=== PATIENT | male | born 1940 | race Caucasian/White ===

== ENCOUNTER 2016-06-09 20:31 | Inpatient (IN) | payer MEDICARE ==
[2016-06-09] VITALS (9 sets, daily range): BP systolic 89–171; BP diastolic 62–112; PULSE 86–150; RESP 18–35; TEMP 95.3–98.4; O2SAT 94–100
[~2016-06-09] VITALS: Ht 175.3 cm; Wt 56.1 kg
[~2016-06-09 20:31] MED LIST: ALBU8I INH; APIX2.5T PO; CART180C4 PO; CARV25TA PO; DOCU100T9 PO; FURO40TA OR; KLOR20TA6 PO; LISI2.5T3 PO; MEDR4PAK3 PO; NITR0.4S SL; PACE200T4 PO
[2016-06-09] MEDS ORDERED: methylPREDNISolone SOD SUCC 125 MG/2 ML VIAL IVP ONE (20:45)
[2016-06-09] MEDS ORDERED: SODIUM CHLORIDE 0.9% FLUSH 10 ML FLUSH IVF PRN (20:45)
[2016-06-09] MEDS: RESP: ALBUTEROL 2.5 MG/IPRATROPIUM 0.5 MG NEB (SCH) INH (20:50)
--- NOTE | 2016-06-09 20:53 | PD ---
HPI Chief Complaint: shortness of breath Time Seen by Provider: 20:35 Travel History International Travel<30 days: No Contact w/Intl Traveler<30days: No Traveled to known affect area: No History of Present Illness HPI The patient is a 76-year-old male with a history of COPD and continued tobacco abuse who complains of shortness of breath for the last 2 days but the last 3 hours have been worse. He denies any fever. He continues to smoke three fourths packs a day. He does not get oxygen at home. He has a history of atrial fibrillation with left bundle-branch block. 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 [facility] Past Medical History Hx Anticoagulant Therapy: Yes Asthma: No Atrial Fibrillation: Yes Blood Disorders: No Anxiety: No Depression: No Heart Rhythm Problems: Yes Cancer: Yes (SKIN) Cardiac Catheterization: Yes Cardiovascular Problems: Yes High Cholesterol: Yes Chemotherapy: No Chest Pain: Yes Congestive Heart Failure: Yes COPD: Yes Coronary Artery Disease: Yes Diabetes: No Diminished Hearing: No Endocrine: No Gastrointestinal Disorders: No Genitourinary: No Hepatitis: No Hiatal Hernia: Yes Hypertension: Yes Immune Disorder: No Implanted Vascular Access Dvce: Yes Musculoskeletal: No Neurologic: No Psychiatric: No Reproductive: No Respiratory: Yes Myocardial Infarction: Yes (X 3) Radiation Therapy: No Sleep Apnea: No PNEUMOCCOCAL Vaccine (Year): 1 Past Surgical History Abdominal Surgery: No AICD: Yes Arteriovenous Shunt: No Cardiac Surgery: Yes (CABG/ PACER/DEFIB) Coronary Artery Bypass Graft: Yes Coronary Stent: Yes Ear Surgery: No Endocrine Surgery: No Eye Surgery: No Genitourinary Surgery: No Gynecologic Surgery: No Insulin Pump: No Joint Replacement: No Neurologic Surgery: No Oral Surgery: No Pacemaker: Yes (LUMAX 340 JADA [id number] 06/02/[address] ESCOBAR) Thoracic Surgery: Yes (CABG) Other Surgery: Yes (AICD) Social History Alcohol Use: Yes (rare) Tobacco Use: Yes (1/2 PPD) Substance Use: No Allergies-Medications (Allergen,Severity, Reaction): Coded Allergies: HMG-CoA Reductase Inhibitors (Verified Adverse Reaction, Unknown, rapid breathing , 06/09/16) Reported Meds & Prescriptions Reported Meds & Active Scripts Active Reported Ventolin Hfa 18 GM Inh (Albuterol Sulfate) 90 Mcg/Act Aer 2 Puff INH Q4-6H PRN Docusate Sodium 100 Mg Cap 50 Mg PO BID Vitamin D3 (Cholecalciferol) 2,000 Unit Chew 2,000 Units CHEW DAILY Carvedilol 25 Mg Tab 25 Mg PO BID Klor-Con M20 (Potassium Chloride Microencaps) 20 Meq Tab 20 Meq PO Q12HR Cartia Xt (Diltiazem ER 24 HR) 180 Mg Caper 180 Mg PO DAILY Nitroglycerin SL (Nitroglycerin) 0.4 Mg Subl 0.4 Mg SL DIRECTED PRN ONE TABLET UNDER THE TONGUE NEEDED FOR CHEST PAIN, MAY REPEAT EVERY FIVE MINUTES FOR A TOTAL OF 3 DOSES OR CALL 911 IF NO RELIEF Eliquis (Apixaban) 5 Mg Tab 5 Mg PO BID Amiodarone (Amiodarone HCl) 200 Mg Tab 200 Mg PO DAILY Digoxin 0.125 Mg Tab 0.125 Mg PO DAILY Furosemide 40 Mg Tab 40 Mg PO BID Review of Systems Except as stated in HPI: all other systems reviewed are Neg Physical Exam Narrative GENERAL: The patient is alert, oriented 3 and moderate respiratory distress. His vital signs blood pressure 171/112 and pulse rate of 118. SKIN: Focused skin assessment warm/dry. HEAD: Atraumatic. Normocephalic. EYES: Pupils equal and round. No scleral icterus. No injection or drainage. ENT: No nasal bleeding or discharge. Mucous membranes pink and moist. NECK: Trachea midline. No JVD. CARDIOVASCULAR: Atrial fibrillation with RVR. No murmur appreciated. RESPIRATORY: No accessory muscle use. A few widely scattered rhonchi are heard bilaterally.. Breath sounds equal bilaterally. GASTROINTESTINAL: Abdomen soft, non-tender, nondistended. Hepatic and splenic margins not palpable. MUSCULOSKELETAL: No obvious deformities. No clubbing. No cyanosis. No edema. NEUROLOGICAL: Awake and alert. No obvious cranial nerve deficits. Motor grossly within normal limits. Normal speech. PSYCHIATRIC: Appropriate mood and affect; insight and judgment normal. Data Data Last Documented VS Vital Signs Date Time Temp Pulse Resp B/P Pulse Ox O2 Delivery O2 Flow Rate FiO2 06/09/16 21:40 104 28 98/62 97 Nasal Cannula 1 06/09/16 20:45 98.4 Orders Complete Blood Count With Diff (06/09/16 20:40) Comprehensive Metabolic Panel (06/09/16 20:40) B-Type Natriuretic Peptide (06/09/16 20:40) Magnesium (Mg) (06/09/16 20:40) Troponin I (06/09/16 20:40) Arterial Blood Gas (Abg) (06/09/16 20:40) Urinalysis - C+S If Indicated (06/09/16 20:40) Influenzae A/B Antigen (06/09/16 20:40) Iv Access Insert/Monitor (06/09/16 20:40) Electrocardiogram (06/09/16 20:40) Ecg Monitoring (06/09/16 20:40) Oximetry (06/09/16 20:40) Oxygen Administration (06/09/16 20:40) Sodium Chloride 0.9% Flush (Ns Flush) (06/09/16 20:45) Methylprednisolone So Succ Inj (Solumedr (06/09/16 20:45) Albuterol-Ipratropium Neb (Duoneb Neb) (06/09/16 20:45) Chest, Pa & Lat (06/09/16 21:34) Admit Order (Ed Use Only) (06/09/16 21:52) Labs Laboratory Tests Test 06/09/16 06/09/16 20:48 21:00 White Blood Count 11.9 TH/MM3 Red Blood Count 5.14 MIL/MM3 Hemoglobin 16.2 GM/DL Hematocrit 50.9 % Mean Corpuscular Volume 99.1 FL Mean Corpuscular Hemoglobin 31.5 PG Mean Corpuscular Hemoglobin 31.8 % Concent Red Cell Distribution Width 15.3 % Platelet Count 148 TH/MM3 Mean Platelet Volume 8.5 FL Neutrophils (%) (Auto) 62.1 % Lymphocytes (%) (Auto) 25.0 % Monocytes (%) (Auto) 7.6 % Eosinophils (%) (Auto) 4.0 % Basophils (%) (Auto) 1.3 % Neutrophils # (Auto) 7.3 TH/MM3 Lymphocytes # (Auto) 3.0 TH/MM3 Monocytes # (Auto) 0.9 TH/MM3 Eosinophils # (Auto) 0.5 TH/MM3 Basophils # (Auto) 0.2 TH/MM3 CBC Comment DIFF FINAL Differential Comment Sodium Level 142 MEQ/L Potassium Level 4.8 MEQ/L Chloride Level 109 MEQ/L Carbon Dioxide Level 24.8 MEQ/L Anion Gap 8 MEQ/L Blood Urea Nitrogen 14 MG/DL Creatinine 1.30 MG/DL Estimat Glomerular Filtration 54 ML/MIN Rate Random Glucose 151 MG/DL Calcium Level 8.8 MG/DL Magnesium Level 2.5 MG/DL Total Bilirubin 0.8 MG/DL Aspartate Amino Transf 26 U/L (AST/SGOT) Alanine Aminotransferase 27 U/L (ALT/SGPT) Alkaline Phosphatase 112 U/L Troponin I LESS THAN 0.02 NG/ML B-Type Natriuretic Peptide 585 PG/ML Total Protein 7.6 GM/DL Albumin 3.8 GM/DL Blood Gas Puncture Site LT RADIAL Blood Gas Patient Temperature 98.6 Blood Gas HCO3 22 mmol/L Blood Gas Base Excess -3.1 mmol/L Blood Gas Oxygen Saturation 90 % Arterial Blood pH 7.31 Arterial Blood Partial 45 mmHG Pressure CO2 Arterial Blood Partial 79 mmHG Pressure O2 Arterial Blood Oxygen Content 20.1 Vol % Arterial Blood 3.1 % Carboxyhemoglobin Arterial Blood Methemoglobin 0.9 % Blood Gas Hemoglobin 15.8 G/DL Blood Gas Inspired Oxygen 21 % MDM Medical Decision Making Medical Screen Exam Complete: Yes Emergency Medical Condition: Yes Medical Record Reviewed: Yes Interpretation(s) The chest x-ray shows underlying emphysema and scarring with no evidence of pneumonia or pulmonary edema. The troponin I is normal. The glucose is 151 and the GFR is 54 but the rest of the complete metabolic profile is normal. The BNP is 585. The influenza A/B antigen is negative for flu a and flu B antigen. The blood gases show pH 7.31, CO2 45, PO2 79 with O2 sat 90% on room air. The CBC shows a white count of 11,900 with 148,000 platelets but is otherwise unremarkable. The EKG shows atrial fibrillation with rapid ventricular response of 143. It also shows a left bundle-branch block. Atrial fibrillation and left bundle branch block were previously seen on his EKG in the past. Differential Diagnosis COPD with acute exacerbation, pneumonia, congestive heart failure, acute coronary syndromeunlikely, electrolyte disorder, continued tobacco abuse, atrial fibrillation with RVR Narrative Course The patient continues to have symptomatic shortness of breath. I discussed this patient with Dr. Collier and Dr. Collier instructed me to admit him. The patient states he normally can walk back and forth to his mailbox without getting short of breath but in the last week he is getting short of breath going even nursing home. He denies any fever and there is no evidence of pneumonia on his chest x-ray. He does not use his nebulizer machine, he is noncompliant on this. He used his albuterol HFA twice before coming into the emergency room today. Diagnosis Primary Impression: COPD with acute exacerbation Additional Impression: Noncompliance with medications Admitting Information Admitting Physician Requests: Admit Drew Langley MD Jun 09, 2016 20:53
[2016-06-09 20:57] LABS: AUTOMATED NEUTROPHIL # 7.3 TH/MM3 (1.8-7.7); BASOPHIL # 0.2 TH/MM3 (0-0.2); BASOPHIL % 1.3 % (0.0-2.0); EOSINOPHIL # 0.5 TH/MM3 (0-0.4); HEMATOCRIT 50.9 % (39.0-51.0); MEAN CELL VOLUME 99.1 FL (80.0-100.0); MEAN CORPUSCULAR HEMOGLOBIN 31.5 PG (27.0-34.0); MEAN CORPUSCULAR HGB CONC 31.8 % (32.0-36.0); MONO % 7.6 % (0.0-8.0); NEUT % 62.1 % (16.0-70.0); PLATELET COUNT 148 TH/MM3 (150-450); RED BLOOD COUNT 5.14 MIL/MM3 (4.50-5.90); RED CELL DISTRIBUTION WIDTH 15.3 % (11.6-17.2); WHITE BLOOD COUNT 11.9 TH/MM3 (4.0-11.0)
[2016-06-09 21:05] LABS: BLOOD GAS BASE EXCESS -3.1 mmol/L (-2-2); BLOOD GAS CARBOXYHEMOGLOBIN 3.1 % (0-4); BLOOD GAS HCO3 22 mmol/L (22-26); BLOOD GAS METHEMOGLOBIN 0.9 % (0-2); BLOOD GAS O2 HGB SATURATION 90 % (90-100); BLOOD GAS OXYGEN CONTENT 20.1 Vol % (12.0-20.0); BLOOD GAS PCO2 45 mmHG (38-42); BLOOD GAS PO2 79 mmHG (61-120); BLOOD GAS TOTAL HGB 15.8 G/DL (12.0-16.0); TEMP CORR TO 98.6
[2016-06-09 21:05] LABS: CHLORIDE 109 MEQ/L (98-107); POTASSIUM 4.8 MEQ/L (3.5-5.1); SODIUM (NA) 142 MEQ/L (136-145)
[2016-06-09 21:06] LABS: CRITICAL VALUE YES; DRAW SITE LT RADIAL; FIO2 21 %; NUMBER OF ARTERIAL PUNCTURES 1; STAT YES; ULNAR PULSE Y
[2016-06-09 21:09] LABS: ANION GAP 8 MEQ/L (5-15); BICARBONATE 24.8 MEQ/L (21.0-32.0); BLOOD UREA NITROGEN 14 MG/DL (7-18); MAGNESIUM 2.5 MG/DL (1.5-2.5)
[2016-06-09 21:12] LABS: ALT (GPT) 27 U/L (12-78); AST (GOT) 26 U/L (15-37); GLOMERULAR FILTRATION RATE 54 ML/MIN (>89); HEMO FLAGS DIFF FINAL
[2016-06-09 21:14] LABS: TOTAL BILIRUBIN ADULT 0.8 MG/DL (0.2-1.0)
[2016-06-09 21:15] LABS: ALKALINE PHOSPHATASE 112 U/L (45-117)
[2016-06-09] MEDS ORDERED: FURO40TA PO (21:24)
[2016-06-09] MEDS ORDERED: AMIO200T PO (21:25)
[2016-06-09] MEDS ORDERED: DIGO0.12 PO (21:25)
[2016-06-09] MEDS ORDERED: APIX5TAB PO (21:26)
[2016-06-09] MEDS ORDERED: NITR1SUB3 SL (21:27)
[2016-06-09] MEDS ORDERED: CART180C PO (21:27)
[2016-06-09] MEDS ORDERED: POTA-245 PO (21:28)
[2016-06-09] MEDS ORDERED: CARV25TA PO (21:28)
[2016-06-09] MEDS ORDERED: DOCU100C PO (21:30)
[2016-06-09] MEDS ORDERED: CHOL1CHW5 CHEW (21:30)
[2016-06-09] MEDS ORDERED: ALBUAER3 INH (21:31)
[2016-06-09] MEDS ORDERED: VENTAER INH (21:32)
--- NOTE | 2016-06-09 22:22 | RADHPO ---
EXAM DATE/TIME: 06/09/2016 21:50 [place] COMPARISON: No previous studies available for comparison. INDICATIONS : Short of breath and difficulty breathing. MEDICAL HISTORY : Myocardial infarction. Chronic obstructive pulmonary disease. Emphysema CHF. Afib. SURGICAL HISTORY : CABG. Pacemaker. ENCOUNTER: Initial ACUITY: 2 days PAIN SCORE: 2/10 LOCATION: Bilateral chest FINDINGS: 2 AP views of the chest were obtained as well as a lateral view and demonstrate hyperinflation of bot h lungs with mild scarring. There are no confluent infiltrates or effusions. The hemidiaphragms are f lattened with blunting of costophrenic angles. The heart size is at the upper limits of normal. The p atient is status post median sternotomy for bypass grafting procedure. There is a left subclavian AV sequential transvenous pacer in place. CONCLUSION: 1. Underlying emphysema and scarring. 2. No evidence of pneumonia or pulmonary edema. Marcus Bustillo MD on June 09, 2016 at 22:19 Board Certified Radiologist. This report was verified electronically.
[2016-06-10] VITALS (8 sets, daily range): BP systolic 95–102; BP diastolic 63–68; PULSE 63–86; RESP 18–20; TEMP 95.5–97.4; O2SAT 97–98
[2016-06-10] MEDS ORDERED: ALBUTEROL SULFATE 90 MCG/ACT HFA 8 GM INHALER INH PRN (02:00)
[2016-06-10] MEDS ORDERED: SODIUM CHLORIDE 0.9% FLUSH 10 ML FLUSH IV FLUSH PRN (02:00)
[2016-06-10] MEDS ORDERED: NITROGLYCERIN 0.4 MG SL 25 TABS/BTL SL PRN (02:00)
[2016-06-10] MEDS ORDERED: RESP: ALBUTEROL 2.5 MG/3 ML NEB (PRN) INH (02:00)
[2016-06-10] MEDS: methylPREDNISolone SOD SUCC 125 MG/2 ML VIAL IVP SCH ×4 (03:44→23:11)
[2016-06-10] MEDS: cefTRIAXone INJ 1,000 MG in SODIUM CHLORIDE 0.9% INJ 100 ML IV SCH (03:46)
[2016-06-10] MEDS: AZITHROMYCIN INJ 500 MG in SODIUM CHLOR 0.9% 250 ML INJ 250 ML IV SCH (04:51)
[2016-06-10] MEDS: DILTIAZEM-CD 180 MG CAP ER PO SCH (09:00)
[2016-06-10] MEDS ORDERED: CARVEDILOL 12.5 MG TAB PO SCH (09:00)
[2016-06-10] MEDS: DIGOXIN 0.125 MG TAB PO SCH (09:00)
--- NOTE | 2016-06-10 10:33 | EKG ---
Date Performed: 06/09/2016 Time Performed: 20:31:30 PTAGE: 76 years EKG: Atrial fibrillation with rapid ventricular response. Left bundle branch block Abnormal ECG PREVIOUS TRACING : 10/08/2015 03.31 DOCTOR: Magnus Malhotra Interpretating Date/Time 06/10/2016 10:32:49
[2016-06-10] MEDS: AMIODARONE 200 MG TAB PO SCH (10:37)
[2016-06-10] MEDS: APIXABAN 5 MG TABLET PO SCH ×2 (10:37→23:10)
[2016-06-10] MEDS: CHOLECALCIFEROL (VIT D3) 1000 UNIT TAB PO SCH (10:37)
[2016-06-10] MEDS: DOCUSATE SODIUM 100 MG/10 ML UDC PO SCH ×2 (10:37→23:10)
[2016-06-10] MEDS: FUROSEMIDE 40 MG TAB PO SCH ×2 (10:37→18:30)
[2016-06-10] MEDS: POTASSIUM CHLORIDE 20 MEQ CONTROLLED RELEASE TAB PO SCH ×2 (10:37→23:10)
[2016-06-10] MEDS: NICOTINE 21 MG/24 HR PATCH TD SCH (10:37)
[2016-06-10] MEDS: SODIUM CHLORIDE 0.9% FLUSH 10 ML FLUSH IV FLUSH SCH ×2 (10:37→21:00)
[2016-06-10 12:04] LABS: BLOOD, URINE NEG (NEG); GLUCOSE,URINE 500 mg/dL (NEG); KETONE, URINE TRACE mg/dL (NEG); NITRITE,URINE NEG (NEG)
[2016-06-10 12:09] LABS: METHOD OF COLLECTION CLEAN CATCH; URINE COLOR YELLOW (YELLW/STRAW)
[2016-06-10 12:10] LABS: COMMENT (UR) CULT NOT INDICATED; CULTURE IF INDICATED CULT NOT INDICATED; RBC, URINE 0-3 /hpf (0-3); SQUAMOUS EPITHELIAL CELL URINE 0-5 /hpf (0-5); WBC, URINE 0-2 /hpf (0-5)
--- NOTE | 2016-06-10 18:44 | HHI.HP ---
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 and prior afib with cad and cabg x3v his heart rate was controlled in ed but he remained sob with chest pressure and was admitted Review of Systems Respiratory: COMPLAINS OF: Cough, Wheezing, Shortness of breath Cardiovascular: COMPLAINS OF: Chest pain Past Family Social History Allergies: Coded Allergies: HMG-CoA Reductase Inhibitors (Verified Adverse Reaction, Unknown, rapid breathing , 06/09/16) Past Medical History copd cad pacemaker Past Surgical History [id number] pacemaker Active Ordered Medications Current Medications Medications (Trade) Dose Ordered Sig/[place] Route PRN Reason Start Time Stop Time Status Last Admin Dose Admin Sodium Chloride (NS Flush) 2 ml BID IV FLUSH 06/10/16 09:00 06/10/16 10:37 Sodium Chloride (NS Flush) 2 ml UNSCH PRN IV FLUSH FLUSH AFTER USING IV ACCESS 06/10/16 02:00 Methylprednisolone Sodium Succinate 60 mg 60 mg Q6H IVP 06/10/16 03:00 06/10/16 15:54 Ceftriaxone Sodium/Sodium Chloride (Rocephin Inj/NS Inj) 100 ml @ 200 mls/hr Q24H IV 06/10/16 02:00 06/10/16 03:46 Nicotine 1 patch 1 patch DAILY TD 06/10/16 09:00 06/10/16 10:37 Azithromycin/ Sodium Chloride (Zithromax Inj/ NS 250 ml Inj) 250 ml @ 250 mls/hr Q24H IV 06/10/16 02:00 06/10/16 04:51 Albuterol Sulfate (Proair Hfa Inh) 2 puff QID PRN INH SHORTNESS OF BREATH 06/10/16 02:00 Amiodarone HCl (Cordarone) 200 mg DAILY PO 06/10/16 09:00 06/10/16 10:37 Apixaban (Eliquis) 5 mg BID PO 06/10/16 09:00 06/10/16 10:37 Digoxin (Lanoxin) 0.125 mg DAILY PO 06/10/16 09:00 Diltiazem HCl (Cardizem Cd) 180 mg DAILY PO 06/10/16 09:00 Docusate Sodium (Colace Liq) 50 mg BID PO 06/10/16 09:00 06/10/16 10:37 Furosemide (Lasix) 40 mg BID@,18 PO 06/10/16 09:00 06/10/16 18:30 Nitroglycerin (Nitrostat Sl) 0.4 mg TID PRN SL CHEST PAIN 06/10/16 02:00 Potassium Chloride (KCl) 20 meq Q12HR PO 06/10/16 09:00 06/10/16 10:37 Cholecalciferol (Vitamin D3) 2,000 units DAILY PO 06/10/16 09:00 06/10/16 10:37 Carvedilol (Coreg) 12.5 mg BID PO 06/10/16 21:00 Family History both parents are with heart disease Social History smoker x 60 years occasional drinker Physical Exam Vital Signs Vital Signs Date Time Temp Pulse Resp B/P Pulse Ox O2 Delivery O2 Flow Rate FiO2 06/10/16 16:00 97.4 71 18 95/63 98 06/10/16 12:00 96.0 63 20 102/68 98 06/10/16 08:00 95.5 70 20 95/64 97 06/10/16 07:25 97 21 06/10/16 04:00 96.8 83 20 96/67 97 06/10/16 00:41 84 06/09/16 23:05 95.3 93 18 104/75 95 06/09/16 22:55 86 24 89/62 97 Room Air 06/09/16 22:36 98 Room Air 06/09/16 22:10 91 24 93/67 99 Nasal Cannula 1 06/09/16 21:40 104 28 98/62 97 Nasal Cannula 1 06/09/16 21:30 90 Nasal Cannula 1 06/09/16 21:25 116 30 108/74 94 Room Air 06/09/16 21:10 124 30 126/93 94 Room Air 06/09/16 21:00 97 Room Air 06/09/16 20:50 132 30 153/84 100 Nasal Cannula 3 06/09/16 20:45 30 Nasal Cannula 3 06/09/16 20:45 98.4 132 30 154/110 100 Nasal Cannula 3 06/09/16 20:40 94 Nasal Cannula 3 06/09/16 20:35 94 Room Air 06/09/16 20:35 98.0 150 35 171/112 94 Physical Exam GENERAL: This is a well-nourished, well-developed patient, in no apparent distress. SKIN: No rashes, ecchymoses or lesions. Cool and dry. HEAD: Atraumatic. Normocephalic. No temporal or scalp tenderness. EYES: Pupils equal round and reactive. Extraocular motions intact. No scleral icterus. No injection or drainage. ENT: Nose without bleeding, purulent drainage or septal hematoma. Throat without erythema, tonsillar hypertrophy or exudate. Uvula midline. Airway patent. NECK: Trachea midline. No JVD or lymphadenopathy. Supple, nontender, no meningeal signs. CARDIOVASCULAR: Regular rate and rhythm without murmurs, gallops, or rubs.well healed cabg incision present with pacemaker present in LICS RESPIRATORY: diminished throughout with some wheeze and rhonchi present GASTROINTESTINAL: Abdomen soft, non-tender, nondistended. No hepato-splenomegaly , or palpable masses. No guarding. MUSCULOSKELETAL: Extremities without clubbing, cyanosis, or edema. No joint tenderness, effusion, or edema noted. No calf tenderness. Negative Homans sign bilaterally.frail NEUROLOGICAL: Awake and alert. Cranial nerves II through XII intact. Motor and sensory grossly within normal limits. Five out of 5 muscle strength in all muscle groups. Normal speech. Laboratory Laboratory Tests Test 06/09/16 06/09/16 06/10/16 06/10/16 20:48 21:00 06:00 11:50 White Blood Count 11.9 Red Blood Count 5.14 Hemoglobin 16.2 Hematocrit 50.9 Mean Corpuscular Volume 99.1 Mean Corpuscular Hemoglobin 31.5 Mean Corpuscular Hemoglobin 31.8 Concent Red Cell Distribution Width 15.3 Platelet Count 148 Mean Platelet Volume 8.5 Neutrophils (%) (Auto) 62.1 Lymphocytes (%) (Auto) 25.0 Monocytes (%) (Auto) 7.6 Eosinophils (%) (Auto) 4.0 Basophils (%) (Auto) 1.3 Neutrophils # (Auto) 7.3 Lymphocytes # (Auto) 3.0 Monocytes # (Auto) 0.9 Eosinophils # (Auto) 0.5 Basophils # (Auto) 0.2 CBC Comment DIFF FINAL Differential Comment Sodium Level 142 Potassium Level 4.8 Chloride Level 109 Carbon Dioxide Level 24.8 Anion Gap 8 Blood Urea Nitrogen 14 Creatinine 1.30 Estimat Glomerular Filtration 54 Rate Random Glucose 151 Calcium Level 8.8 Magnesium Level 2.5 Total Bilirubin 0.8 Aspartate Amino Transf 26 (AST/SGOT) Alanine Aminotransferase 27 (ALT/SGPT) Alkaline Phosphatase 112 Troponin I LESS THAN 0.02 B-Type Natriuretic Peptide 585 808 Total Protein 7.6 Albumin 3.8 Blood Gas Puncture Site LT RADIAL Blood Gas Patient Temperature 98.6 Blood Gas HCO3 22 Blood Gas Base Excess -3.1 Blood Gas Oxygen Saturation 90 Arterial Blood pH 7.31 Arterial Blood Partial 45 Pressure CO2 Arterial Blood Partial 79 Pressure O2 Arterial Blood Oxygen Content 20.1 Arterial Blood 3.1 Carboxyhemoglobin Arterial Blood Methemoglobin 0.9 Blood Gas Hemoglobin 15.8 Blood Gas Inspired Oxygen 21 Urine Collection Type CLEAN CATCH Urine Color YELLOW Urine Turbidity CLEAR Urine pH 6.0 Urine Specific [place] 1.028 Urine Protein 30 Urine Glucose (UA) 500 Urine Ketones TRACE Urine Occult Blood NEG Urine Nitrite NEG Urine Bilirubin NEG Urine Leukocyte Esterase NEG Urine RBC 0-3 Urine WBC 0-2 Urine Squamous Epithelial 0-5 Cells Microscopic Urinalysis Comment CULT NOT INDICATED Urine Collection Time 11:50 Date/Time Procedure Status Source Growth 06/09/16 20:48 Influenza Types A,B Antigen (KATHY) - Final Complete Nasal Aspirate NEGATIVE FOR FLU A AND B ANTIGEN.... Result Diagram: 06/09/16204706/09/162047 Imaging Last 24 hours Impressions Chest X-Ray 06/09/162133 Signed Impressions: Service Date/Time: Thursday, June 09, 2016 21:50 - CONCLUSION: 1. Underlying emphysema and scarring. 2. No evidence of pneumonia or pulmonary edema. Marcus Bustillo MD Course pt feeling better today will continue abx and steroids smoking cessation encouraged Assessment and Plan Problem List: (1) COPD (chronic obstructive pulmonary disease) Status: Acute (2) Atrial fibrillation with RVR Status: Acute Discussed Condition With patient and family Discharge Planning codorus Nitish Collier DO Jun 10, 2016 18:44
[2016-06-10] MEDS: CARVEDILOL 12.5 MG TAB PO SCH (23:12)
[2016-06-11] VITALS (10 sets, daily range): BP systolic 90–117; BP diastolic 60–72; PULSE 59–90; RESP 18–20; TEMP 95.7–96.5; O2SAT 96–99
[2016-06-11] MEDS: cefTRIAXone INJ 1,000 MG in SODIUM CHLORIDE 0.9% INJ 100 ML IV SCH (02:10)
[2016-06-11] MEDS: AZITHROMYCIN INJ 500 MG in SODIUM CHLOR 0.9% 250 ML INJ 250 ML IV SCH (02:31)
[2016-06-11] MEDS: methylPREDNISolone SOD SUCC 125 MG/2 ML VIAL IVP SCH ×2 (02:46→09:00)
--- NOTE | 2016-06-11 06:21 | HHI.PR ---
Subjective Remarks Patient alert and oriented. Denies any SOB or CP Objective Vital Signs Date Time Temp Pulse Resp B/P Pulse Ox O2 Delivery O2 Flow Rate FiO2 06/11/16 04:00 95.7 78 18 99/63 97 06/11/16 00:00 96.1 90 18 101/60 98 06/10/16 20:23 97 21 06/10/16 20:00 96.3 86 18 100/67 98 06/10/16 16:00 97.4 71 18 95/63 98 06/10/16 12:00 96.0 63 20 102/68 98 06/10/16 08:00 95.5 70 20 95/64 97 06/10/16 07:25 97 21 I/O 06/10/16 06/10/16 06/10/16 06/11/16 06/11/16 06/11/16 07:00 15:00 23:00 07:00 15:00 23:00 Intake Total 770 ml 800 ml 240 ml 120 ml Output Total 750 ml 200 ml 500 ml Balance 770 ml 50 ml 40 ml -380 ml Intake Oral 420 ml 800 ml 240 ml 120 ml IV Total 350 ml Output Urine Total 750 ml 200 ml 500 ml # Voids 1 # Bowel Movements 0 0 0 0 Result Diagram: 06/09/16204706/09/162047 Medications and IVs Current Medications Medications (Trade) Dose Ordered Sig/[place] Route Start Time Stop Time Status Last Admin (NS Flush) 2 ml BID IV FLUSH 06/10/16 09:00 06/10/16 21:00 (NS Flush) 2 ml UNSCH PRN IV FLUSH 06/10/16 02:00 Methylprednisolone Sodium Succinate 60 mg 60 mg Q6H IVP 06/10/16 03:00 06/11/16 02:46 (Rocephin Inj/NS Inj) 100 ml @ 200 mls/hr Q24H IV 06/10/16 02:00 06/11/16 02:10 Nicotine 1 patch 1 patch DAILY TD 06/10/16 09:00 06/10/16 10:37 (Zithromax Inj/ NS 250 ml Inj) 250 ml @ 250 mls/hr Q24H IV 06/10/16 02:00 06/11/16 02:31 (Proair Hfa Inh) 2 puff QID PRN INH 06/10/16 02:00 (Cordarone) 200 mg DAILY PO 06/10/16 09:00 06/10/16 10:37 (Eliquis) 5 mg BID PO 06/10/16 09:00 06/10/16 23:10 (Lanoxin) 0.125 mg DAILY PO 06/10/16 09:00 (Cardizem Cd) 180 mg DAILY PO 06/10/16 09:00 (Colace Liq) 50 mg BID PO 06/10/16 09:00 06/10/16 23:10 (Lasix) 40 mg BID@,18 PO 06/10/16 09:00 06/10/16 18:30 (Nitrostat Sl) 0.4 mg TID PRN SL 06/10/16 02:00 (KCl) 20 meq Q12HR PO 06/10/16 09:00 06/10/16 23:10 (Vitamin D3) 2,000 units DAILY PO 06/10/16 09:00 06/10/16 10:37 (Coreg) 12.5 mg BID PO 06/10/16 21:00 06/10/16 23:12 Mary Jo Mcadams Jun 11, 2016 06:21
[2016-06-11 06:39] LABS: AUTOMATED NEUTROPHIL # 14.2 TH/MM3 (1.8-7.7); EOSINOPHIL # 0.1 TH/MM3 (0-0.4); EOSINOPHIL % 0.9 % (0.0-4.0); HEMATOCRIT 40.6 % (39.0-51.0); HEMO FLAGS AUTO DIFF; LYMPH % 3.2 % (9.0-44.0); LYMPHOCYTE # 0.5 TH/MM3 (1.0-4.8); MEAN CORPUSCULAR HEMOGLOBIN 32.5 PG (27.0-34.0); MEAN CORPUSCULAR HGB CONC 33.1 % (32.0-36.0); MONO % 2.2 % (0.0-8.0); NEUT % 93.7 % (16.0-70.0); PLATELET COUNT 119 TH/MM3 (150-450); RED BLOOD COUNT 4.14 MIL/MM3 (4.50-5.90); RED CELL DISTRIBUTION WIDTH 14.6 % (11.6-17.2); WHITE BLOOD COUNT 15.1 TH/MM3 (4.0-11.0)
[2016-06-11 06:40] LABS: BICARBONATE 26.4 MEQ/L (21.0-32.0); MAGNESIUM 2.2 MG/DL (1.5-2.5); POTASSIUM 3.8 MEQ/L (3.5-5.1)
[2016-06-11 07:10] LABS: BANDS 13 % (0-6); NEUTROPHIL # MANUAL DIFF 13.9 TH/MM3 (1.8-7.7); POLYS (SEG NEUTROPHILS) 79 % (16-70); WBC DIFF SAMPLE 100
[2016-06-11 07:11] LABS: PLATELET ESTIMATE SMEAR LOW (NORMAL); PLATELET MORPHOLOGY NORMAL (NORMAL); SCAN/DIFF FINAL DIFF MANUAL
[2016-06-11 07:16] LABS: DIGOXIN 0.9 NG/ML (0.8-2.0)
[2016-06-11] MEDS: SODIUM CHLORIDE 0.9% FLUSH 10 ML FLUSH IV FLUSH SCH ×2 (08:59→21:00)
[2016-06-11] MEDS: APIXABAN 5 MG TABLET PO SCH ×2 (09:00→22:53)
[2016-06-11] MEDS: AMIODARONE 200 MG TAB PO SCH (09:00)
[2016-06-11] MEDS: DOCUSATE SODIUM 100 MG/10 ML UDC PO SCH ×2 (09:00→22:54)
[2016-06-11] MEDS: DILTIAZEM-CD 180 MG CAP ER PO SCH (09:00)
[2016-06-11] MEDS: CARVEDILOL 12.5 MG TAB PO SCH ×2 (09:01→21:00)
[2016-06-11] MEDS: FUROSEMIDE 40 MG TAB PO SCH ×2 (09:01→17:24)
[2016-06-11] MEDS: NICOTINE 21 MG/24 HR PATCH TD SCH (09:04)
[2016-06-11] MEDS: DIGOXIN 0.125 MG TAB PO SCH (09:04)
[2016-06-11] MEDS: CHOLECALCIFEROL (VIT D3) 1000 UNIT TAB PO SCH (09:04)
[2016-06-11] MEDS: POTASSIUM CHLORIDE 20 MEQ CONTROLLED RELEASE TAB PO SCH ×2 (09:05→22:53)
--- NOTE | 2016-06-11 11:16 | HHI.PR ---
Subjective Remarks Patient alert and oriented. Denies any SOB or CP Objective Vital Signs Date Time Temp Pulse Resp B/P Pulse Ox O2 Delivery O2 Flow Rate FiO2 06/11/16 08:00 96.2 75 18 106/71 98 06/11/16 04:00 95.7 78 18 99/63 97 06/11/16 00:00 96.1 90 18 101/60 98 06/10/16 20:23 97 21 06/10/16 20:00 96.3 86 18 100/67 98 06/10/16 16:00 97.4 71 18 95/63 98 06/10/16 12:00 96.0 63 20 102/68 98 I/O 06/10/16 06/10/16 06/10/16 06/11/16 06/11/16 06/11/16 07:00 15:00 23:00 07:00 15:00 23:00 Intake Total 770 ml 800 ml 240 ml 120 ml Output Total 750 ml 200 ml 500 ml Balance 770 ml 50 ml 40 ml -380 ml Intake Oral 420 ml 800 ml 240 ml 120 ml IV Total 350 ml Output Urine Total 750 ml 200 ml 500 ml # Voids 1 # Bowel Movements 0 0 0 0 Result Diagram: 06/11/16 0510 06/11/1610 Imaging Last 72 hours Impressions Chest X-Ray 06/09/162133 Signed Impressions: Service Date/Time: Thursday, June 09, 2016 21:50 - CONCLUSION: 1. Underlying emphysema and scarring. 2. No evidence of pneumonia or pulmonary edema. Marcus Bustillo MD Objective Remarks GENERAL: Alert and cooperative SKIN: Warm and dry. HEAD: Normocephalic. EYES: No scleral icterus. No injection or drainage. NECK: Supple, trachea midline. No JVD or lymphadenopathy. CARDIOVASCULAR: Regular rate and rhythm without murmurs, gallops, or rubs. RESPIRATORY: Breath sounds equal bilaterally. diminished. No accessory muscle use. GASTROINTESTINAL: Abdomen soft, non-tender, nondistended. MUSCULOSKELETAL: No cyanosis, or edema. BACK: Nontender without obvious deformity. No CVA tenderness. Medications and IVs Current Medications Medications (Trade) Dose Ordered Sig/[place] Route Start Time Stop Time Status Last Admin (NS Flush) 2 ml BID IV FLUSH 06/10/16 09:00 06/11/16 08:59 (NS Flush) 2 ml UNSCH PRN IV FLUSH 06/10/16 02:00 Methylprednisolone Sodium Succinate 60 mg 60 mg Q6H IVP 06/10/16 03:00 06/11/16 09:00 (Rocephin Inj/NS Inj) 100 ml @ 200 mls/hr Q24H IV 06/10/16 02:00 06/11/16 02:10 Nicotine 1 patch 1 patch DAILY TD 06/10/16 09:00 06/11/16 09:04 (Zithromax Inj/ NS 250 ml Inj) 250 ml @ 250 mls/hr Q24H IV 06/10/16 02:00 06/11/16 02:31 (Proair Hfa Inh) 2 puff QID PRN INH 06/10/16 02:00 (Cordarone) 200 mg DAILY PO 06/10/16 09:00 06/11/16 09:00 (Eliquis) 5 mg BID PO 06/10/16 09:00 06/11/16 09:00 (Lanoxin) 0.125 mg DAILY PO 06/10/16 09:00 06/11/16 09:04 (Cardizem Cd) 180 mg DAILY PO 06/10/16 09:00 06/11/16 09:00 (Colace Liq) 50 mg BID PO 06/10/16 09:00 06/11/16 09:00 (Lasix) 40 mg BID@09,18 PO 06/10/16 09:00 06/11/16 09:01 (Nitrostat Sl) 0.4 mg TID PRN SL 06/10/16 02:00 (KCl) 20 meq Q12HR PO 06/10/16 09:00 06/11/16 09:05 (Vitamin D3) 2,000 units DAILY PO 06/10/16 09:00 06/11/16 09:04 (Coreg) 12.5 mg BID PO 06/10/16 21:00 06/11/16 09:01 Assessment and Plan Problem List: (1) COPD (chronic obstructive pulmonary disease) Status: Acute Plan: No SOB noted. Solumedrol decreased. PT ordered (2) Atrial fibrillation with RVR Status: Acute Plan: Continue current medication. Rate controlled cardiology consulted. (3) Tobacco abuse Status: Acute Plan: Tobacco cessation Assessment and Plan PT Discharge home tomorrow with [facility] Case management consulted Discussed Condition With Assessment and plan discussed with Dr. Collier Discharge Planning Home with [facility] Mary Jo Mcadams Jun 11, 2016 11:16
--- NOTE | 2016-06-11 11:17 | HHI.FF ---
Face to Face Verification Diagnosis: (1) Atrial fibrillation with RVR (2) COPD (chronic obstructive pulmonary disease) (3) COPD with acute exacerbation Physical Therapy Order: Evaluate and Treat, Improve ambulation, Strength and gait training Home Health Nursing Order: Medical education Medication education-adverse effect I have seen patient Mahendra Kramer on 06/11/16. My clinical findings support the need for the requested home health care services because: Patient has SOB Deconditioned w/ increased weakness I certify that my clinical findings support that this patient is homebound because: COPD Hx COPD- exertion dyspnea/weakness Mary Jo Mcadams [facility] Jun 11, 2016 11:17
--- NOTE | 2016-06-11 15:44 | MB ---
cc: LIT HULL MD DATE OF CONSULTATION: 06/11/2016. REASON FOR CONSULTATION: Atrial fibrillation with rapid ventricular rate. HISTORY OF PRESENT ILLNESS: Mr. Kramer is a 76-year-old gentleman who is well-known to me. He does have a history of atrial fibrillation, CABG x3 with an ischemic cardiomyopathy. He reports that he was out in [place] about a week ago and had some issues with diarrhea. More recently he has been home and had done well until approximately three to four days prior to admission when he had progressive shortness of breath. He does note that he was eating some pretzels. PAST MEDICAL HISTORY: His past medical history is significant for: 1. Paroxysmal atrial fibrillation - the patient does refuse anticoagulation. 2. CABG. 3. Severe mitral regurgitation. 4. ICD - Medtronic for an ejection fraction of 30%. ALLERGIES: NO KNOWN DRUG ALLERGIES. OUTPATIENT MEDICATIONS: 1. Amiodarone 200 milligrams a day. 2. Apixaban. 3. Albuterol. 4. Coreg. 5. Diltiazem. 6. Digoxin. 7. Docusate. 8. Furosemide. 9. Potassium. FAMILY HISTORY: Noncontributory. REVIEW OF SYSTEMS: Except for what is mentioned in the history of present illness, all twelve systems are negative. PHYSICAL EXAMINATION: VITAL SIGNS: On physical exam, vital signs currently are 96.5, 90, 20, 90/60. GENERAL: In general, he is thin man who is in no apparent distress. NECK: His neck is free from jugular venous distention. LUNGS: The lungs are decreased and clear to auscultation. CARDIOVASCULAR: On cardiovascular examination, he has an irregular rhythm. No rubs or gallops were appreciated. ABDOMEN: The abdomen is soft. EXTREMITIES: Free from edema. IMPRESSIONS: 1. Atrial fibrillation - the patient does have a history of atrial fibrillation and has had issues with rapid ventricular response. His current medications here in the hospital do appear to be holding him with the Coreg at 12.5. The patient has had some noncompliance with his medications, which I do believe explains both his rapid ventricular response and mild congestive heart failure exacerbation. 2. Congestive heart failure - the patient has had a mild acute on chronic systolic failure and does appear to be back to baseline. It is reasonable for him to again continue on his present medications noting that he is on p.o. medications. 3. Coronary artery disease - the patient is stable to me and denies any chest pain. 4. COPD - per the primary team. DISPOSITION: It is reasonable for the patient to be discharged in the a.m. if he remains stable on p.o. medications and follow up with me next week. Lit Hull M.D. HARI/YANA /1:16 PM /3:35 PM
[2016-06-11] MEDS: CEFUROXIME AXETIL 500 MG TAB PO SCH (22:53)
[2016-06-12] VITALS: BP 107/75; PULSE 84; RESP 20; TEMP 96.5; O2SAT 98
[2016-06-12 04:00] VITALS: BP 104/69; PULSE 86; RESP 20; TEMP 96.9; O2SAT 97
[2016-06-12 06:31] VITALS: PULSE 91
[2016-06-12 07:36] LABS: AUTOMATED NEUTROPHIL # 14.7 TH/MM3 (1.8-7.7); BASOPHIL % 0.2 % (0.0-2.0); EOSINOPHIL # 0.1 TH/MM3 (0-0.4); EOSINOPHIL % 0.9 % (0.0-4.0); HEMATOCRIT 41.9 % (39.0-51.0); LYMPH % 2.7 % (9.0-44.0); LYMPHOCYTE # 0.4 TH/MM3 (1.0-4.8); MEAN CELL VOLUME 98.2 FL (80.0-100.0); MEAN CORPUSCULAR HEMOGLOBIN 32.9 PG (27.0-34.0); MEAN CORPUSCULAR HGB CONC 33.5 % (32.0-36.0); NEUT % 94.2 % (16.0-70.0); PLATELET COUNT 128 TH/MM3 (150-450); RED BLOOD COUNT 4.27 MIL/MM3 (4.50-5.90); RED CELL DISTRIBUTION WIDTH 14.8 % (11.6-17.2); WHITE BLOOD COUNT 15.5 TH/MM3 (4.0-11.0)
[2016-06-12 07:37] LABS: HEMO FLAGS DIFF FINAL
[2016-06-12 07:46] LABS: POTASSIUM 3.6 MEQ/L (3.5-5.1)
[2016-06-12 07:49] LABS: BICARBONATE 28.3 MEQ/L (21.0-32.0)
[2016-06-12 07:54] VITALS: BP 108/76; PULSE 82; RESP 16; TEMP 96.7; O2SAT 97
[2016-06-12] MEDS: CEFUROXIME AXETIL 500 MG TAB PO SCH (08:40)
[2016-06-12] MEDS: predniSONE 10 MG TAB PO SCH ×2 (08:40→11:47)
[2016-06-12] MEDS: DIGOXIN 0.125 MG TAB PO SCH (08:41)
[2016-06-12] MEDS: DILTIAZEM-CD 180 MG CAP ER PO SCH (08:41)
[2016-06-12] MEDS: POTASSIUM CHLORIDE 20 MEQ CONTROLLED RELEASE TAB PO SCH (08:41)
[2016-06-12] MEDS: AMIODARONE 200 MG TAB PO SCH (08:41)
[2016-06-12] MEDS: FUROSEMIDE 40 MG TAB PO SCH (08:41)
[2016-06-12] MEDS: CHOLECALCIFEROL (VIT D3) 1000 UNIT TAB PO SCH (08:41)
[2016-06-12] MEDS: CARVEDILOL 12.5 MG TAB PO SCH (08:41)
[2016-06-12] MEDS: NICOTINE 21 MG/24 HR PATCH TD SCH (08:42)
[2016-06-12] MEDS: APIXABAN 5 MG TABLET PO SCH (08:42)
[2016-06-12] MEDS: DOCUSATE SODIUM 100 MG/10 ML UDC PO SCH (08:42)
[2016-06-12] MEDS: SODIUM CHLORIDE 0.9% FLUSH 10 ML FLUSH IV FLUSH SCH (08:46)
[2016-06-12] MEDS ORDERED: methylPREDNISolone SOD SUCC 125 MG/2 ML VIAL IVP SCH (09:00)
--- NOTE | 2016-06-12 09:53 | HHI.DS ---
Discharge Summary Admission Date Jun 09, 2016 at 21:54 Admitting Diagnosis COPD with acute exacerbation, atrial fibrillation with RVR (1) COPD (chronic obstructive pulmonary disease) Brief History The patient is a 76-year-old male with a history of COPD and continued tobacco abuse who complains of shortness of breath for the last 2 days but the last 3 hours have been worse. He denies any fever. He continues to smoke three fourths packs a day. He does not get oxygen at home. He has a history of atrial fibrillation with left bundle-branch block. His analytical scientist is Dr. Mcclure. CBC/BMP: 06/12/16 0722 06/12/16 0722 Significant Findings Laboratory Tests Test 06/09/16 06/09/16 06/10/16 06/10/16 20:48 21:00 06:00 11:50 White Blood Count 11.9 TH/MM3 (4.0-11.0) Mean Corpuscular Hemoglobin 31.8 % Concent (32.0-36.0) Platelet Count 148 TH/MM3 (150-450) Eosinophils # (Auto) 0.5 TH/MM3 (0-0.4) Chloride Level 109 MEQ/L (98-107) Estimat Glomerular Filtration 54 ML/MIN (>89) Rate Random Glucose 151 MG/DL (74-106) Troponin I LESS THAN 0.02 NG/ML (0.02-0.05) B-Type Natriuretic Peptide 585 PG/ML 808 PG/ML (0-100) (0-100) Blood Gas Base Excess -3.1 mmol/L (-2-2) Arterial Blood pH 7.31 (7.380-7.420) Arterial Blood Partial 45 mmHG (38-42) Pressure CO2 Arterial Blood Oxygen Content 20.1 Vol % (12.0-20.0) Urine Protein 30 mg/dL (NEG-TRACE) Urine Glucose (UA) 500 mg/dL (NEG) Urine Ketones TRACE mg/dL (NEG) Test 06/11/16 06/12/16 05:10 07:22 White Blood Count 15.1 TH/MM3 15.5 TH/MM3 (4.0-11.0) (4.0-11.0) Red Blood Count 4.14 MIL/MM3 4.27 MIL/MM3 (4.50-5.90) (4.50-5.90) Platelet Count 119 TH/MM3 128 TH/MM3 (150-450) (150-450) Neutrophils (%) (Auto) 93.7 % 94.2 % (16.0-70.0) (16.0-70.0) Lymphocytes (%) (Auto) 3.2 % 2.7 % (9.0-44.0) (9.0-44.0) Neutrophils # (Auto) 14.2 TH/MM3 14.7 TH/MM3 (1.8-7.7) (1.8-7.7) Lymphocytes # (Auto) 0.5 TH/MM3 0.4 TH/MM3 (1.0-4.8) (1.0-4.8) Neutrophils % (Manual) 79 % (16-70) Band Neutrophils % 13 % (0-6) Lymphocytes % 4 % (9-44) Neutrophils # (Manual) 13.9 TH/MM3 (1.8-7.7) Platelet Estimate LOW (NORMAL) Blood Urea Nitrogen 26 MG/DL (7-18) 29 MG/DL (7-18) Estimat Glomerular Filtration 54 ML/MIN (>89) 54 ML/MIN (>89) Rate Random Glucose 134 MG/DL 126 MG/DL (74-106) (74-106) Calcium Level 8.3 MG/DL 8.3 MG/DL (8.5-10.1) (8.5-10.1) PE at Discharge GENERAL: Alert and cooperative SKIN: Warm and dry. HEAD: Normocephalic. EYES: No scleral icterus. No injection or drainage. NECK: Supple, trachea midline. No JVD or lymphadenopathy. CARDIOVASCULAR: Regular rate and rhythm without murmurs, gallops, or rubs. RESPIRATORY: Breath sounds equal bilaterally. diminished. No accessory muscle use. GASTROINTESTINAL: Abdomen soft, non-tender, nondistended. MUSCULOSKELETAL: No cyanosis, or edema. BACK: Nontender without obvious deformity. No CVA tenderness. Hospital Course The patient is a 76-year-old male with a history of COPD and continued tobacco abuse who complains of shortness of breath for the last 2 days but the last 3 hours have been worse. He denies any fever. He continues to smoke three fourths packs a day. He does not get oxygen at home. He has a history of atrial fibrillation with left bundle-branch block. He was treated for COPD exacerbation with initially IV antibiotics and then oral. He was also treated with IV steroids. He will be discharged to home with [facility] on oral antibiotics and prednisone taper. He is discharged with leukocytosis which is most likely steriods. He will need to follow up with primary care provider, pulmonary and cardiology. Pt Condition on Discharge: Good Discharge Disposition: Disch w/ Home Health Serv Discharge Instructions DIET: Follow Instructions for: Heart Healthy Diet Activities you can perform: Regular-No Restrictions Follow up Referrals: Cardiology - 2 Weeks PCP Follow-up - 1 Week New Medications: Prednisone (21) 10 mg tab Dose Pack (Prednisone (21) 10 mg tab Dose Pack) 10 Mg Pack 10 MG PO DIRECTED 10 mg PO Three times per day for 3 days then 10 mg PO Two times per day for 3 days then 10 mg PO daily for 3 days then discontinue Inflammation #1 Ref 0 DSPK Carvedilol (Coreg) 12.5 Mg Tab 12.5 MG PO BID Blood Pressure Management #60 TAB Cefuroxime (Ceftin) 500 Mg Tab 500 MG PO Q12HR Infection #10 TAB Continued Medications: Albuterol 18 GM Inh (Ventolin Hfa 18 GM Inh) 90 Mcg/Act Aer 2 PUFF INH Q4-6H PRN SHORTNESS OF BREATH #1 Ref 0 INHALER Amiodarone (Amiodarone) 200 Mg Tab 200 MG PO DAILY Regulate Heart Beat #30 Ref 0 TAB Apixaban (Eliquis) 5 Mg Tab 5 MG PO BID Blood Clot Prevention #60 Ref 0 TAB Cholecalciferol (Vitamin D3) 2,000 Unit Chew 2000 UNITS CHEW DAILY #1 BOTTLE Digoxin (Digoxin) 0.125 Mg Tab 0.125 MG PO DAILY Regulate Heart Beat #30 Ref 0 TAB Diltiazem ER 24 HR (Cartia Xt) 180 Mg Caper 180 MG PO DAILY #30 Ref 0 CAP Docusate Sodium (Docusate Sodium) 100 Mg Cap 50 MG PO BID Prevent Constipation #60 Ref 0 CAP Furosemide (Furosemide) 40 Mg Tab 40 MG PO BID #60 Ref 0 TAB Nitroglycerin SL (Nitroglycerin SL) 0.4 Mg Subl 0.4 MG SL DIRECTED ONE TABLET UNDER THE TONGUE NEEDED FOR CHEST PAIN, MAY REPEAT EVERY FIVE MINUTES FOR A TOTAL OF 3 DOSES OR CALL 911 IF NO RELIEF PRN CHEST PAIN #100 Ref 0 TAB.SL Potassium Chloride Microencaps (Klor-Con M20) 20 Meq Tab 20 MEQ PO Q12HR Electrolyte Replacement #60 Ref 0 TAB Discontinued Medications: Carvedilol (Carvedilol) 25 Mg Tab 25 MG PO BID #60 Ref 0 TAB Mary Jo Mcadams Jun 12, 2016 09:53
[2016-06-12 12:00] VITALS: BP 91/59; PULSE 78; RESP 16; TEMP 97.5; O2SAT 99
[2016-06-12] MEDS ORDERED: CARV12.5 PO (12:13)
[2016-06-12] MEDS ORDERED: CEFT500T3 PO (12:13)
[2016-06-12] MEDS ORDERED: PRED10PA PO (12:13)
--- NOTE | 2016-06-14 04:45 | MB ---
cc: RENETTA PAYTON,JULIETA Zuleta MD DATE OF CONSULTATION: 06/10/2016 REQUESTING PHYSICIAN: Dr. Langley REASON FOR CONSULTATION: COPD exacerbation. HISTORY OF PRESENT ILLNESS: Mr. Kramer is a 78 year-old male with a longstanding history of COPD, nicotine use, and continues to smoke. He also has a history of coronary artery disease, status post CABG for the last 2-3 days. He was not feeling well. He has difficulty breathing but denied any palpitations. He did not have any chest pain, no nausea or vomiting, no dizziness. With these symptoms he came to the hospital. He was found to be in atrial fibrillation with rapid ventricular rate. He had blood work done. His blood gas shows pH 7.31, PCO2 45, PO2 79, bicarb 22. CBC showed WBC 11.9, hemoglobin 16.2, hematocrit 50.9, MCV 19, platelet count 1148. Sodium 142, potassium 4.8, chloride 109, CO2 24, BUN 14, creatinine 1.30. Chest x-ray shows COPD changes. The patient was admitted to the floor. His rate is much better controlled after Cardizem. PAST MEDICAL HISTORY: Significant for: 1. Coronary artery disease. Status post CABG. 2. Ischemic cardiomyopathy, EF 30 to 35%. He has ICD placed. 3. Atrial fibrillation. 4. Hyperlipidemia. 5. Nonsustained ventricular tachycardia. 6. Peripheral vascular disease. 7. Hiatal hernia MEDICATIONS He is currently takin. Coreg 12.5 mg twice a day. 2. Nicotine patch 21 mg. 3. Amiodarone 200 milligrams a day. 4. Eliquis 5 mg twice a day. 5. Digoxin 0.125 milligrams. 6. Diltiazem ER 180 milligrams a day. 7. Lasix 40 milligrams twice a day. 8. Potassium 20 milliequivalents a day. 9. Solu-Medrol 60 mg q.6 h. 10. Rocephin 1 gram. 11. Zithromax 500 mg a day. ALLERGIES HMG CoA Reductase Inhibitor SOCIAL HISTORY: He has a history of smoking and continues to smoke 15 cigarettes a day. 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 FAMILY HISTORY: He has four children, one son and three daughters. REVIEW OF SYSTEMS: The patient says he is able to carry on his activities. He gets short of breath. No DVT or pulmonary embolism. No seizure, stroke or epilepsy. No malignancy. PHYSICAL EXAMINATION: Shows a thin-built elderly male not in acute distress. VITAL SIGNS: Blood pressure 102/68, heart rate 63, respirations 20, temperature 96. HEENT: Pupils are equal and react to light. Oral mucosa, nasal mucosa normal. Neck: Supple. JVP not raised. Chest: Hyporesonant. Few rhonchi. CV: S1-S2 are irregular. Abdomen: Soft, nondistended. Bowel sounds are present. Extremities: No edema. [employer]: Alert and oriented, no focal deficit. IMPRESSION 1. COPD, mild exacerbation. 2. His atrial fibrillation with ventricular rate has improved. 3. Coronary artery disease, status post CABG. 4. Ischemic cardiomyopathy, status post ICD placement. PLAN: I discussed with the patient, advised him strongly to quit smoking. Will give him antibiotics, Rocephin and Zithromax. Continue aerosol treatment. IV Solu-Medrol. He is on Eliquis 5 milligrams twice a day. He is on Cardizem and Coreg which we will continue. Further treatment will depend on the course in the hospital. Thank you, Dr. Langley, for this consult. MD SOY Kimble/ABIODUN /6:18 PM /11:59 PM
== END 2016-06-12 13:25 | disposition home health service (06) | DRG 190 ==
LOC: PHED 20:31 → PHEDA 21:54 → PH3B 23:04
PROVIDERS: ADMIT Family Medicine; ATTEND Family Medicine
DX: J44.1 Chronic obstructive pulmonary disease with (acute) exacerbation (principal); I50.23 Acute on chronic systolic (congestive) heart failure; I48.0 Paroxysmal atrial fibrillation; I34.0 Nonrheumatic mitral (valve) insufficiency; I25.5 Ischemic cardiomyopathy; Z95.810 Presence of automatic (implantable) cardiac defibrillator; I25.10 Atherosclerotic heart disease of native coronary artery without angina pectoris; Z95.1 Presence of aortocoronary bypass graft; Z91.14 Patient's other noncompliance with medication regimen; F17.210 Nicotine dependence, cigarettes, uncomplicated; E78.5 Hyperlipidemia, unspecified; I73.9 Peripheral vascular disease, unspecified; K44.9 Diaphragmatic hernia without obstruction or gangrene
CPT/HCPCS: 36600; 71020; 80048; 80053; 80162; 81001; 82805; 83735; 83880; 84100; 84484; 85007; 85025; 85027; 87804; 93005; 96374; J0456; J0696; J2930; J7050; J7512

== ENCOUNTER 2017-02-11 04:42 | Inpatient (IN) | payer MEDICARE ==
[~2017-02-11] VITALS: Ht 175.3 cm; Wt 53.8 kg
[2017-02-11] VITALS (22 sets, daily range): BP systolic 109–156; BP diastolic 65–92; PULSE 87–122; RESP 18–30; TEMP 97.8–98; O2SAT 92–100
[~2017-02-11 04:42] MED LIST changes: -ALBU8I INH; +AMIO200T PO; -APIX2.5T PO; +APIX5TAB PO; +CART180C PO; -CART180C4 PO; +CARV12.5 PO; -CARV25TA PO; +CEFT500T3 PO; +CHOL1CHW5 CHEW; +DIGO0.12 PO; +DOCU100C15 PO; -DOCU100T9 PO; -FURO40TA OR; +FURO40TA PO; +KLOR20TA3 PO; -KLOR20TA6 PO; -LISI2.5T3 PO; -MEDR4PAK3 PO; -NITR0.4S SL; +NITR1SUB3 SL; -PACE200T4 PO; +PRED10PA PO; +VENTAER INH
[2017-02-11] MEDS ORDERED: DILTIAZEM HCL 25 MG/5 ML VIAL ONE (04:52)
[2017-02-11] MEDS ORDERED: SODIUM CHLORIDE 0.9% FLUSH 10 ML FLUSH IV FLUSH PRN ×2 (05:00)
[2017-02-11] MEDS ORDERED: LORazepam 2 MG/ML VIAL ONE (05:02)
[2017-02-11 05:13] LABS: AUTOMATED NEUTROPHIL # 6.4 TH/MM3 (1.8-7.7); BASOPHIL # 0.1 TH/MM3 (0-0.2); BASOPHIL % 1.1 % (0.0-2.0); EOSINOPHIL # 0.2 TH/MM3 (0-0.4); EOSINOPHIL % 1.8 % (0.0-4.0); HEMATOCRIT 50.9 % (39.0-51.0); HEMO FLAGS DIFF FINAL; LYMPH % 23.2 % (9.0-44.0); LYMPHOCYTE # 2.3 TH/MM3 (1.0-4.8); MEAN CELL VOLUME 101.3 FL (80.0-100.0); MEAN CORPUSCULAR HEMOGLOBIN 32.8 PG (27.0-34.0); MEAN CORPUSCULAR HGB CONC 32.4 % (32.0-36.0); MONO % 10.4 % (0.0-8.0); NEUT % 63.5 % (16.0-70.0); PLATELET COUNT 142 TH/MM3 (150-450); RED BLOOD COUNT 5.03 MIL/MM3 (4.50-5.90); RED CELL DISTRIBUTION WIDTH 15.6 % (11.6-17.2)
[2017-02-11] MEDS ORDERED: DILTIAZEM HCL 50 MG/10 ML VIAL IV PUSH ONE (05:15)
[2017-02-11] MEDS: DILTIAZEM INJ 125 MG in SODIUM CHLORIDE 0.9% INJ 100 ML IV PRN (05:27)
[2017-02-11 05:28] LABS: ALT (GPT) 23 U/L (12-78); ANION GAP 9 MEQ/L (5-15); AST (GOT) 23 U/L (15-37); BICARBONATE 22.9 MEQ/L (21.0-32.0); BLOOD UREA NITROGEN 18 MG/DL (7-18); CHLORIDE 110 MEQ/L (98-107); GLOMERULAR FILTRATION RATE 49 ML/MIN (>89); MAGNESIUM 2.3 MG/DL (1.5-2.5); POTASSIUM 4.5 MEQ/L (3.5-5.1); SODIUM (NA) 142 MEQ/L (136-145)
--- NOTE | 2017-02-11 05:30 | RADRPT ---
EXAM DATE/TIME: 02/11/2017 05:16 [place] COMPARISON: CHEST PA & LAT, June 09, 2016, 21:50. CHEST SINGLE AP, October 08, 2015, 2:38. INDICATIONS : Short of breath. MEDICAL HISTORY : Chronic obstructive pulmonary disease. Congestive heart failure. Myocardial infarction. Coronary artery disease. Tobacco use. A-fib. Hiatal hernia. SURGICAL HISTORY : CABG. Pacemaker. Coronary artery stent. Defibrillator. Emphysema. ENCOUNTER: Initial ACUITY: 1 day PAIN SCORE: 0/10 LOCATION: Bilateral chest FINDINGS: The lungs are hyperaerated. Mild prominence to the interstitial markings at the periphery of both gilles ngs. No focal infiltrates seen. The heart upper limits normal size, stable in size and configuratio n to prior. Evidence of prior median sternotomy, CABG, and bipolar cardiac pacer leads. CONCLUSION: No acute findings. Hyperaerated lungs. Kurt Foss MD on February 11, 2017 at 5:28 Board Certified Radiologist. This report was verified electronically.
[2017-02-11 05:32] LABS: ALKALINE PHOSPHATASE 122 U/L (45-117); TOTAL BILIRUBIN ADULT 1.2 MG/DL (0.2-1.0)
[2017-02-11 05:34] LABS: CREATINE KINASE 67 U/L (39-308)
--- NOTE | 2017-02-11 05:36 | PD ---
HPI Chief Complaint: Respiratory Distress Time Seen by Provider: 04:53 Travel History International Travel<30 days: No Contact w/Intl Traveler<30days: No Traveled to known affect area: No History of Present Illness HPI Patient is a 77-year-old male history of COPD history of A. fib was in rapid A. fib paramedics gave him 20 mg of Cardizem en route and he comes in still short of breath this neck posturing leaning forward denies chest pain had no chest pain at all today but woke up this evening very short of breath called paramedics. The ER he still fast heart rate is 120 bpm on irregular and still short of breath. I immediately called for BiPAP and order another 20 mg of Cardizem PFSH Past Medical History Hx Anticoagulant Therapy: Yes Asthma: No Atrial Fibrillation: Yes Blood Disorders: No Anxiety: No Depression: No Heart Rhythm Problems: Yes Cancer: Yes (SKIN) Cardiac Catheterization: Yes Cardiovascular Problems: Yes High Cholesterol: Yes Chemotherapy: No Chest Pain: No Congestive Heart Failure: Yes COPD: Yes Cerebrovascular Accident: No Coronary Artery Disease: Yes Diabetes: No Diminished Hearing: No Endocrine: No Gastrointestinal Disorders: Yes GERD: No Genitourinary: No Hepatitis: No Hiatal Hernia: Yes Hypertension: Yes Immune Disorder: No Implanted Vascular Access Dvce: Yes Musculoskeletal: No Neurologic: No Psychiatric: No Reproductive: No Respiratory: Yes Migraines: No Myocardial Infarction: Yes (X 3) Radiation Therapy: No Seizures: No Sleep Apnea: No Thyroid Disease: No Ulcer: No PNEUMOCCOCAL Vaccine (Year): 1 Past Surgical History Abdominal Surgery: No AICD: Yes Arteriovenous Shunt: No Cardiac Surgery: Yes (CABG/ PACER/DEFIB) Coronary Artery Bypass Graft: Yes Coronary Stent: Yes Ear Surgery: No Endocrine Surgery: No Eye Surgery: No Genitourinary Surgery: No Gynecologic Surgery: No Insulin Pump: No Joint Replacement: No Neurologic Surgery: No Oral Surgery: No Pacemaker: Yes (LUMAX 340 BECKT [id number] 06/02/[address] ESCOBAR) Thoracic Surgery: Yes (CABG) Other Surgery: Yes (AICD) Social History Alcohol Use: Yes (Occasionally) Tobacco Use: Yes (1 PPD) Substance Use: No Allergies-Medications (Allergen,Severity, Reaction): Coded Allergies: amlodipine (Unverified Adverse Reaction, Unknown, rapid breathing , ) atorvastatin (Unverified Adverse Reaction, Unknown, rapid breathing , ) pravastatin (Unverified Adverse Reaction, Unknown, rapid breathing , 02/11) simvastatin (Unverified Adverse Reaction, Unknown, rapid breathing , 02/11) Reported Meds & Prescriptions Reported Meds & Active Scripts Active Coreg (Carvedilol) 12.5 Mg Tab 12.5 Mg PO BID Prednisone (21) 10 mg tab Dose Pack (Prednisone) 10 Mg Pack 10 Mg PO DIRECTED 10 mg PO Three times per day for 3 days then 10 mg PO Two times per day for 3 days then 10 mg PO daily for 3 days then discontinue Reported Cartia Xt (Diltiazem ER 24 HR) 120 Mg Caper 180 Mg PO DAILY Ventolin Hfa 18 GM Inh (Albuterol Sulfate) 90 Mcg/Act Aer 2 Puff INH Q4-6H PRN Docusate Sodium 100 Mg Cap 50 Mg PO BID Klor-Con M20 (Potassium Chloride Microencaps) 20 Meq Tab 20 Meq PO Q12HR Cartia Xt (Diltiazem ER 24 HR) 180 Mg Caper 180 Mg PO DAILY Nitroglycerin SL (Nitroglycerin) 0.4 Mg Subl 0.4 Mg SL DIRECTED PRN ONE TABLET UNDER THE TONGUE NEEDED FOR CHEST PAIN, MAY REPEAT EVERY FIVE MINUTES FOR A TOTAL OF 3 DOSES OR CALL 911 IF NO RELIEF Eliquis (Apixaban) 5 Mg Tab 5 Mg PO BID Amiodarone (Amiodarone HCl) 200 Mg Tab 200 Mg PO DAILY Digoxin 0.125 Mg Tab 0.125 Mg PO DAILY Furosemide 40 Mg Tab 40 Mg PO BID Review of Systems Except as stated in HPI: all other systems reviewed are Neg Cardiovascular: Positive: Irregular Rhythm, Tachycardia Respiratory: Positive: Shortness of Breath, Wheezing Physical Exam Narrative GENERAL: Appears short of breath leaning forward posturing respiratory rate is very much increased with accessory muscles being used SKIN: Warm and dry. HEAD: Atraumatic. Normocephalic. EYES: Pupils equal and round. No scleral icterus. No injection or drainage. ENT: No nasal bleeding or discharge. Mucous membranes pink and moist. NECK: Trachea midline. No JVD. CARDIOVASCULAR: Irregularly irregular and rapid at 125-135. Pacemaker battery seen in the left subclavian area. RESPIRATORY: Positive accessory muscle use respiratory rate is 25-30 lung sounds are diminished in the bases and wheezing in the upper airways bilateral GASTROINTESTINAL: Abdomen soft, non-tender, nondistended. Hepatic and splenic margins not palpable. MUSCULOSKELETAL: Extremities without clubbing, cyanosis, or edema. No obvious deformities. NEUROLOGICAL: Awake and alert. No obvious cranial nerve deficits. Motor grossly within normal limits. Five out of 5 muscle strength in the arms and legs. Normal speech. PSYCHIATRIC: Appropriate mood and affect; insight and judgment normal. Data Data Last Documented VS Vital Signs Date Time Temp Pulse Resp B/P (MAP) Pulse Ox O2 Delivery O2 Flow Rate FiO2 02/11/17 06:19 95 Nasal Cannula 3.00 02/11/17 05:27 105 114/64 02/11/17 04:50 50 02/11/17 04:45 30 Orders Orders Diltiazem Inj (Cardizem Inj) (02/11/17 04:52) Complete Blood Count With Diff (02/11/17 04:54) Comprehensive Metabolic Panel (02/11/17 04:54) Ckmb (Isoenzyme) Profile (02/11/17 04:54) Troponin I (02/11/17 04:54) Lipase (02/11/17 04:54) Urinalysis - C+S If Indicated (02/11/17 04:54) Magnesium (Mg) (02/11/17 04:54) Chest, Single Ap (02/11/17 04:54) Ecg Monitoring (02/11/17 04:55) Blood Pressure (02/11/17 04:55) Iv Access Insert/Monitor (02/11/17 04:55) Oximetry (02/11/17 04:55) Vital Signs (02/11/17 04:55) Sodium Chloride 0.9% Flush (Ns Flush) (02/11/17 05:00) Diltiazem Inj (Cardizem Inj) (02/11/17 05:15) Ecg Monitoring (02/11/17 04:55) Blood Pressure (02/11/17 04:55) Iv Access Insert/Monitor (02/11/17 04:55) Oximetry (02/11/17 04:55) Diltiazem Inj (Cardizem Inj) (02/11/17 05:00) Sodium Chloride 0.9% Flush (Ns Flush) (02/11/17 05:00) Resp Bipap / Cpap Non Invas Vt (02/11/17 ) Lorazepam Inj (Ativan Inj) (02/11/17 05:02) Digoxin (02/11/17 05:10) Admit Order (Ed Use Only) (02/11/17 06:26) Labs Laboratory Tests Test 02/11/17 04:55 02/11/17 06:00 White Blood Count 10.0 TH/MM3 Red Blood Count 5.03 MIL/MM3 Hemoglobin 16.5 GM/DL Hematocrit 50.9 % Mean Corpuscular Volume 101.3 FL Mean Corpuscular Hemoglobin 32.8 PG Mean Corpuscular Hemoglobin Concent 32.4 % Red Cell Distribution Width 15.6 % Platelet Count 142 TH/MM3 Mean Platelet Volume 8.8 FL Neutrophils (%) (Auto) 63.5 % Lymphocytes (%) (Auto) 23.2 % Monocytes (%) (Auto) 10.4 % Eosinophils (%) (Auto) 1.8 % Basophils (%) (Auto) 1.1 % Neutrophils # (Auto) 6.4 TH/MM3 Lymphocytes # (Auto) 2.3 TH/MM3 Monocytes # (Auto) 1.0 TH/MM3 Eosinophils # (Auto) 0.2 TH/MM3 Basophils # (Auto) 0.1 TH/MM3 CBC Comment DIFF FINAL Differential Comment Blood Urea Nitrogen 18 MG/DL Creatinine 1.40 MG/DL Random Glucose 181 MG/DL Total Protein 7.5 GM/DL Albumin 3.9 GM/DL Calcium Level 8.7 MG/DL Magnesium Level 2.3 MG/DL Alkaline Phosphatase 122 U/L Aspartate Amino Transf (AST/SGOT) 23 U/L Alanine Aminotransferase (ALT/SGPT) 23 U/L Total Bilirubin 1.2 MG/DL Sodium Level 142 MEQ/L Potassium Level 4.5 MEQ/L Chloride Level 110 MEQ/L Carbon Dioxide Level 22.9 MEQ/L Anion Gap 9 MEQ/L Estimat Glomerular Filtration Rate 49 ML/MIN Total Creatine Kinase 67 U/L Troponin I LESS THAN 0.02 NG/ML Lipase 173 U/L Digoxin Level 0.7 NG/ML Blood Gas Puncture Site RT RADIAL Blood Gas Patient Temperature 98.6 Blood Gas HCO3 22 mmol/L Blood Gas Base Excess -2.3 mmol/L Blood Gas Oxygen Saturation 98 % Arterial Blood pH 7.41 Arterial Blood Partial Pressure CO2 35 mmHg Arterial Blood Partial Pressure O2 230 mmHG Arterial Blood Oxygen Content 21.6 Vol % Arterial Blood Carboxyhemoglobin 1.6 % Arterial Blood Methemoglobin 0.5 % Blood Gas Hemoglobin 15.4 G/DL Oxygen Delivery Device NPPV Blood Gas Ventilator Setting IPAP12/EPAP 5 Blood Gas Inspired Oxygen 50 % MDM Medical Decision Making Medical Screen Exam Complete: Yes Emergency Medical Condition: Yes Interpretation(s) EKG rapid afib CXR hyperinflated COPD appearance Differential Diagnosis Patient comes in rapid A. fib rest her rate is increased seems very to has air hunger. Patient was giving Cardizem 20 Milgrom's in the field with reduction of his heart rate from 160-120. He still says he feels like he is short of breath because his heart is going to fast. She has history of COPD as well as rapid A. fib he is been admitted for the same in the past he denies ever needing to be intubated. BiPAP was started to help him oxygenated and Cardizem repeat 20 mg is given with good results that I hang 20 of Cardizem 5 mg per hour drip troponin is negative I admit him to the ICU after an hour on the BiPAP his pH is 7.40 I his CO2 is 35 and his PaO2 is 230 we discontinue the BiPAP and I admit him to [facility] for rapid A. fib and respiratory distress COPD exacerbation Narrative Course Putting him on BiPAP area putting him on a Cardizem drip. Reevaluating his medications , reevaluating his oxygen saturation and the ABG done by the automotive exhaust emissions technician. Adjusting his FiO2 on his BiPAP. Sedating him as well as pushing antiarrhythmic medications on him. Critical care time is 45 minutes Cardizem drip at 5mg /hr keeps heart rate around 99 BPM BIPAP able to be removed and He is admitted ICU Critical Care Narrative Critical care time is 45 minutes between assessing his airway assessing his cardiac rhythm and circulation state... Putting him on BiPAP area putting him on a Cardizem drip. Reevaluating his medications , reevaluating his oxygen saturation and the ABG done by the automotive exhaust emissions technician. Adjusting his FiO2 on his BiPAP. Sedating him as well as pushing antiarrhythmic medications on him. Critical care time is 45 minutes Diagnosis Primary Impression: Atrial fibrillation with RVR Additional Impression: COPD with acute exacerbation Vahid Perez MD Feb 11, 2017 05:36
[2017-02-11] MEDS ORDERED: CART120C PO (06:31)
[2017-02-11 06:52] LABS: BLOOD GAS BASE EXCESS -2.3 mmol/L (-2-2); BLOOD GAS CARBOXYHEMOGLOBIN 1.6 % (0-4); BLOOD GAS HCO3 22 mmol/L (22-26); BLOOD GAS METHEMOGLOBIN 0.5 % (0-2); BLOOD GAS O2 HGB SATURATION 98 % (90-100); BLOOD GAS OXYGEN CONTENT 21.6 Vol % (12.0-20.0); BLOOD GAS PCO2 35 mmHg (38-42); BLOOD GAS PO2 230 mmHG (61-120); BLOOD GAS TOTAL HGB 15.4 G/DL (12.0-16.0); CRITICAL VALUE NO; OXYGEN DEVICE NPPV; TEMP CORR TO 98.6
[2017-02-11 06:53] LABS: DRAW SITE RT RADIAL; FIO2 50 %; NUMBER OF ARTERIAL PUNCTURES 1; STAT NO; ULNAR PULSE PRESENT; VENT SETTINGS IPAP12/EPAP 5
[2017-02-11] MEDS ORDERED: CHLORHEXIDINE GLUCONATE 2 % 1 PACK (2 CLOTHS) TOP PRN (09:00)
[2017-02-11] MEDS ORDERED: LACTULOSE SYRUP 20 GM/30 ML CUP PO PRN (09:00)
[2017-02-11] MEDS ORDERED: RESP: ALBUTEROL 2.5 MG/IPRATROPIUM 0.5 MG NEB (PRN) INH (09:00)
[2017-02-11] MEDS ORDERED: MISCELLANEOUS NURSING INFORMATION XX SCH (09:00)
[2017-02-11] MEDS ORDERED: SENNOSIDES 8.6 MG TAB PO PRN (09:00)
[2017-02-11] MEDS ORDERED: MAGNESIUM HYDROXIDE SUSP 30 ML CUP PO PRN (09:00)
[2017-02-11] MEDS ORDERED: HEPARIN SODIUM - SQ 10,000 UNITS/ML VIAL SQ SCH (09:00)
[2017-02-11] MEDS ORDERED: BISACODYL 10 MG SUPP RECTAL PRN (09:00)
[2017-02-11] MEDS ORDERED: DEXTROSE 50% IN WATER 50 ML VIAL(D50) IV PUSH PRN (09:15)
[2017-02-11] MEDS ORDERED: GLUCAGON 1 MG/ML VIAL OTHER PRN (09:15)
--- NOTE | 2017-02-11 09:50 | MH ---
cc: LINDA ZHAO DATE OF ADMISSION: 02/11/2017 1941 HISTORY OF PRESENT ILLNESS The patient is a 77-year-old male with past medical history of atrial fibrillation on Eliquis, COPD, cardiomyopathy with EF of 30%, coronary artery disease. He presented to [facility] ED with atrial fibrillation with RVR. The patient was given Cardizem 20 mg en route by paramedics and on arrival to the ED he was in respiratory distress as well. No associated symptoms of chest pain, orthopnea, PND or edema of lower extremities. In the ER he was tachycardic with heart rate of 120s and was placed on BiPAP. ABG on BiPAP showed a pH of 7.41, CO2 35, pAO2 of 230, bicarb of 22, saturation of 98%. The EKG in the ED showed atrial fibrillation with RVR. He was given additional Cardizem bolus 20 mg and placed on Cardizem drip at 5 mg an hour. The patient overall improved in the ED and when seen he is on 2.5 liters oxygen via nasal cannula with saturation ranges between 92-95% and current heart rate of 87 with blood pressure of 109/66. Chest x-ray in the ED showed no acute findings, hyperaerated lungs. The patient appears comfortable, in no acute distress. He denies any fever, cough or constitutional symptoms. In addition he denies any nausea, vomiting or abdominal pain. PAST MEDICAL HISTORY Past medical history significant for: 1. Cardiomyopathy with EF of 30%. 2. Coronary artery disease. 3. COPD. 4. Chronic atrial fibrillation. PAST SURGICAL HISTORY Previous CABG and pacemaker placement. SOCIAL HISTORY Occasional drinker, smoker. ALLERGIES AMLODIPINE, ATORVASTATIN, PRAVASTATIN, SIMVASTATIN. MEDICATION Reported medications: 1. Ventolin. 2. Vitamin D3. 3. Diltiazem. 4. Eliquis. 5. Amiodarone. 6. Digoxin. 7. Coreg. REVIEW OF SYSTEMS As per HPI. The rest of the review of systems is unremarkable. FAMILY HISTORY Reviewed and noncontributory to the present illness. PHYSICAL EXAMINATION GENERAL: A 77-year-old male lying in bed, in no acute distress. VITAL SIGNS: Afebrile, pulse of 87, respiratory rate of 18, blood pressure 109/66, saturation 92%. HEENT: Atraumatic, normocephalic. Pupils equal, round, reactive to light and accommodation. Extraocular muscles intact. Conjunctivae pink. Nonicteric sclerae. Oral mucosa within normal. NECK: Supple. No JVD, adenopathy or thyromegaly. Trachea midline. CARDIOVASCULAR: Irregularly, irregular. Normal S1-S2. No murmurs, rubs or gallops noted. PULMONARY: Bilateral equal air entry, overall diminished. ABDOMEN: Soft, nontender, no distension. Positive bowel sounds. EXTREMITIES: No cyanosis, clubbing or edema. NEURO: No focal sensory deficit. LABORATORY DATA Sodium 142, potassium 4.5, chloride 110, CO2 22, BUN 18, creatinine 1.4, glucose 181, total bilirubin 1.2, alk phos 122, AST 23, ALT 23, troponin less than 0.02, total CK 67, WBC 10, hemoglobin 16.5, hematocrit 50, platelet count of 142. IMAGING STUDIES Chest x-ray showed no acute disease. IMPRESSION 1. Respiratory insufficiency. 2. Atrial fibrillation with rapid ventricular response. 3. COPD. 4. Cardiomyopathy with EF of 30%. 5. Mild acute kidney injury. 6. History of coronary artery disease. 7. History of CABG. RECOMMENDATIONS 1. Monitor neuro status closely. The patient is awake and alert, avoid any sedatives. 2. Continue oxygen, maintain sats above 92%. 3. Bronchodilators in the form of DuoNeb q. 4 plus q. 2 p.r.n. for shortness of breath. 4. Noninvasive positive pressure ventilation p.r.n. for respiratory distress. 5. Wean off Cardizem drip. Monitor heart rate and blood pressure closely and maintain MAP greater than 65 mmHg. Will resume his home cardiac meds which include Coreg 12.5 mg b.i.d., amiodarone 200 mg daily, Eliquis 5 mg b.i.d. Will check digoxin level. The patient is on digoxin 0.125 mg daily at home. 6. He had an echocardiogram in September of 2015 which showed an EF of 30-35%. 7. Place on Solu-Medrol 40 mg IV q. 8. The patient was on taper dose of prednisone at home. 8. Monitor renal function, Is and Os and avoid nephrotoxins. Electrolyte replacement as needed. 9. Place on a heart healthy diet and Pepcid 10 mg IV q. 12 for GI prophylaxis. 10. Will hold off on antibiotics at this time as there is no evidence of any infectious process. Monitor for signs of infections which include fever and WBC and panculture if spikes a fever. Chest x-ray in the ED showed no acute disease. 11. Monitor CBC. 12. Place on sliding scale insulin with Accu-Chek for glycemic control as the patient will be on IV steroids. 13. GI prophylaxis with Pepcid and DVT prophylaxis with SCDs. In addition we will resume Eliquis 5 mg b.i.d. 14. The patient appears hemodynamically stable. We will transfer to [facility] under [facility] service. MD DAYAN Le/LEANDRO /9:08 AM /9:23 AM
[2017-02-11] MEDS: FAMOTIDINE 20 MG/2 ML VIAL IV PUSH SCH ×2 (10:00→20:53)
[2017-02-11] MEDS: AMIODARONE 200 MG TAB PO SCH (10:15)
[2017-02-11] MEDS: methylPREDNISolone SOD SUCC 40 MG/1 ML VIAL IV PUSH SCH ×3 (10:30→20:53)
[2017-02-11] MEDS: DOCUSATE SODIUM 50 MG/SENNA 8.6 MG TAB PO SCH ×2 (11:00→20:54)
[2017-02-11] MEDS: INSULIN NovoLIN REGULAR SUPPLEMENTAL SCALE SQ SCH ×3 (11:00→20:52)
[2017-02-11] MEDS: RESP: ALBUTEROL 2.5 MG/IPRATROPIUM 0.5 MG NEB (SCH) INH ×4 (13:08→23:23)
--- NOTE | 2017-02-11 16:47 | PD.CONS ---
HPI Consult Requested By Primary Care Physician Nitish Collier, DO History of Present Illness 77-year-old male with past medical history of atrial fibrillation on Eliquis, COPD, smoker, cardiomyopathy with EF of 30%, coronary artery disease s/p CABG. He presented to [facility] ED with atrial fibrillation with RVR and complaints of SOB, abd pain and palpitations. The patient was given Cardizem 20 mg en route by paramedics and on arrival to the ED he was in respiratory distress as well. Denies chest pain, orthopnea, PND or edema of lower extremities. Cardiology consulted for evaluation Afib. Review of Systems Consitutional: DENIES: Fatigue, Fever, Chills, Weight gain, Weight loss Eyes: DENIES: Amaurosis Fugax, Change in vision HEENT: DENIES: Lightheadedness, Change in hearing Respiratory: DENIES: See HPI, Cough, Snoring, Shortness of breath, Wheezing, Sputum production Cardiovascular: COMPLAINS OF: Palpitations, DENIES: See HPI, Chest pain, Syncope, Tachycardia Gastrointestinal: DENIES: Nausea, Vomiting, Change in bowel habits, Reflux, Bloody stools, Melena Genitourinary: DENIES: Urinary incontinence, Difficulty voiding Integumentary: DENIES: Rash Neurologic: DENIES: Tingling or numbness, Memory problems, Poor Balance, Stroke symptoms Musculoskeletal: DENIES: Joint pain, Muscle pain, Limited range of motion, Back pain Psychiatric: DENIES: Anxiety, Depression, Sleep disturbances Hematologic: DENIES: Bruising tendencies, Bleeding tendencies Endocrine: DENIES: Weight gain, Weight loss, Thyroid disease Past Family Social History Allergies: Coded Allergies: amlodipine (Unverified Adverse Reaction, Unknown, rapid breathing , ) atorvastatin (Unverified Adverse Reaction, Unknown, rapid breathing , ) pravastatin (Unverified Adverse Reaction, Unknown, rapid breathing , 02/11) simvastatin (Unverified Adverse Reaction, Unknown, rapid breathing , 02/11) Past Medical History 1. Cardiomyopathy with EF of 30%. 2. Coronary artery disease. 3. COPD. 4. Chronic atrial fibrillation. Past Surgical History CABG and pacemaker placement. Reported Medications Reported Meds & Active Scripts Active Coreg (Carvedilol) 12.5 Mg Tab 12.5 Mg PO BID Prednisone (21) 10 mg tab Dose Pack (Prednisone) 10 Mg Pack 10 Mg PO DIRECTED 10 mg PO Three times per day for 3 days then 10 mg PO Two times per day for 3 days then 10 mg PO daily for 3 days then discontinue Reported Cartia Xt (Diltiazem ER 24 HR) 120 Mg Caper 180 Mg PO DAILY Ventolin Hfa 18 GM Inh (Albuterol Sulfate) 90 Mcg/Act Aer 2 Puff INH Q4-6H PRN Docusate Sodium 100 Mg Cap 50 Mg PO BID Klor-Con M20 (Potassium Chloride Microencaps) 20 Meq Tab 20 Meq PO Q12HR Cartia Xt (Diltiazem ER 24 HR) 180 Mg Caper 180 Mg PO DAILY Nitroglycerin SL (Nitroglycerin) 0.4 Mg Subl 0.4 Mg SL DIRECTED PRN ONE TABLET UNDER THE TONGUE NEEDED FOR CHEST PAIN, MAY REPEAT EVERY FIVE MINUTES FOR A TOTAL OF 3 DOSES OR CALL 911 IF NO RELIEF Eliquis (Apixaban) 5 Mg Tab 5 Mg PO BID Amiodarone (Amiodarone HCl) 200 Mg Tab 200 Mg PO DAILY Digoxin 0.125 Mg Tab 0.125 Mg PO DAILY Furosemide 40 Mg Tab 40 Mg PO BID Active Ordered Medications Current Medications Medications (Trade) Dose Ordered Sig/[place] Route Start Time Stop Time Status Last Admin (NS Flush) 2 ml UNSCH PRN IV FLUSH 02/11/17 05:00 Diltiazem HCl 125 mg/Sodium Chloride 125 ml @ 5 mls/hr TITRATE PRN IV 02/11/17 05:00 02/11/17 05:27 (NS Flush) 2 ml UNSCH PRN IV FLUSH 02/11/17 05:00 (Duoneb Neb) 1 ampule Q4HR NEB INH 02/11/17 12:00 02/11/17 15:57 (Duoneb Neb) 1 ampule Q2HR NEB PRN INH 02/11/17 09:00 Miscellaneous Information 1 Q361D XX 02/11/17 09:00 02/11/17 09:00 (Chlorhexidine 2% Cloth) 3 pack Taper DAILY@04 TOP 02/12/17 04:00 02/08/18 03:59 (Chlorhexidine 2% Cloth) 3 pack UNSCH PRN TOP 02/11/17 09:00 (Gayle-Colace) 1 tab BID PO 02/11/17 09:00 02/11/17 11:00 (Milk Of Magnesia Liq) 30 ml Q12H PRN PO 02/11/17 09:00 (Senokot) 17.2 mg Q12H PRN PO 02/11/17 09:00 (Dulcolax Supp) 10 mg DAILY PRN RECTAL 02/11/17 09:00 (Lactulose Liq) 30 ml DAILY PRN PO 02/11/17 09:00 (SoluMEDROL INJ) 40 mg Q8HR IV PUSH 02/11/17 10:30 02/11/17 14:00 (D50w (Vial) Inj) 50 ml UNSCH PRN IV PUSH 02/11/17 09:15 (Glucagon Inj) 1 mg UNSCH PRN OTHER 02/11/17 09:15 (NovoLIN R SUPPLEMENTAL SCALE) 1 Q6H SQ 02/11/17 10:00 02/11/17 16:30 (Cordarone) 200 mg DAILY PO 02/11/17 10:15 02/11/17 10:15 (Eliquis) 5 mg BID PO 02/11/17 21:00 (Pepcid Inj) 10 mg Q12H IV PUSH 02/11/17 10:00 02/11/17 10:00 (Coreg) 25 mg BID PO 02/11/17 21:00 Social History Occasional drinker, smoker. Physical Exam Vital Signs Vital Signs Date Time Temp Pulse Resp B/P (MAP) Pulse Ox O2 Delivery O2 Flow Rate FiO2 02/11/17 15:21 87 02/11/17 15:21 111 123/85 02/11/17 15:10 97.8 111 20 123/85 (98) 93 02/11/17 15:10 93 Nasal Cannula 2.00 02/11/17 14:00 92 20 150/74 (99) 99 02/11/17 13:12 99 Nasal Cannula 2.00 02/11/17 13:00 95 20 148/70 (96) 99 02/11/17 12:00 103 22 117/77 (90) 100 02/11/17 11:00 102 27 113/83 (93) 99 02/11/17 10:00 97.9 91 20 122/71 (88) 99 02/11/17 10:00 99 Nasal Cannula 2.00 02/11/17 07:04 87 18 109/66 (80) 92 Nasal Cannula 2.50 02/11/17 06:19 95 Nasal Cannula 3.00 02/11/17 05:27 105 114/64 02/11/17 04:50 100 50 02/11/17 04:45 122 30 156/92 (113) 97 Physical Exam GENERAL: Well-nourished, well-developed patient. SKIN: Warm and dry. HEAD: Normocephalic. EYES: No scleral icterus. No injection or drainage. NECK: Supple, trachea midline. No JVD or lymphadenopathy. CARDIOVASCULAR: Irr irr without murmurs, gallops, or rubs. RESPIRATORY: Breath sounds equal bilaterally. No accessory muscle use. GASTROINTESTINAL: Abdomen soft, non-tender, nondistended. EXTREMITIES: No cyanosis, or edema. NEUROLOGICAL: Awake, alert, and oriented x 3. Non-focal. Laboratory Laboratory Tests Test 02/11/17 04:55 02/11/17 06:00 02/11/17 09:25 White Blood Count 10.0 Red Blood Count 5.03 Hemoglobin 16.5 Hematocrit 50.9 Mean Corpuscular Volume 101.3 Mean Corpuscular Hemoglobin 32.8 Mean Corpuscular Hemoglobin Concent 32.4 Red Cell Distribution Width 15.6 Platelet Count 142 Mean Platelet Volume 8.8 Neutrophils (%) (Auto) 63.5 Lymphocytes (%) (Auto) 23.2 Monocytes (%) (Auto) 10.4 Eosinophils (%) (Auto) 1.8 Basophils (%) (Auto) 1.1 Neutrophils # (Auto) 6.4 Lymphocytes # (Auto) 2.3 Monocytes # (Auto) 1.0 Eosinophils # (Auto) 0.2 Basophils # (Auto) 0.1 CBC Comment DIFF FINAL Differential Comment Blood Urea Nitrogen 18 Creatinine 1.40 Random Glucose 181 Total Protein 7.5 Albumin 3.9 Calcium Level 8.7 Magnesium Level 2.3 Alkaline Phosphatase 122 Aspartate Amino Transf (AST/SGOT) 23 Alanine Aminotransferase (ALT/SGPT) 23 Total Bilirubin 1.2 Sodium Level 142 Potassium Level 4.5 Chloride Level 110 Carbon Dioxide Level 22.9 Anion Gap 9 Estimat Glomerular Filtration Rate 49 Total Creatine Kinase 67 Troponin I LESS THAN 0.02 Lipase 173 Digoxin Level 0.7 Blood Gas Puncture Site RT RADIAL Blood Gas Patient Temperature 98.6 Blood Gas HCO3 22 Blood Gas Base Excess -2.3 Blood Gas Oxygen Saturation 98 Arterial Blood pH 7.41 Arterial Blood Partial Pressure CO2 35 Arterial Blood Partial Pressure O2 230 Arterial Blood Oxygen Content 21.6 Arterial Blood Carboxyhemoglobin 1.6 Arterial Blood Methemoglobin 0.5 Blood Gas Hemoglobin 15.4 Oxygen Delivery Device NPPV Blood Gas Ventilator Setting IPAP12/EPAP 5 Blood Gas Inspired Oxygen 50 Nasal Screen MRSA (PCR) MRSA NOT DETECTED Result Diagram: 02/11/175 02/11/17454 Imaging Last Impressions Chest X-Ray 02/11/17453 Signed Impressions: Service Date/Time: January 05:16 - CONCLUSION: No acute findings. Hyperaerated lungs. Kurt Foss MD Assessment and Plan Problem List: (1) Atrial fibrillation with RVR ICD Codes: I48.91 - Unspecified atrial fibrillation Status: Acute Plan: 77 y/o m consulted for Afib with RVR. Patient with know Afib on OAC and with LV dysfunction. Afib better controlled after Cardizem, but still in RVR. He remains afebrile and hemodynamic stable. No CV complaints. Recommendations: 1. Cont Cardizem drip and wean as tolerated by HR 2. Increase Coreg to 25mg PO BID 3. Cont Eliquis 4. Avoid electrolytes abnormalities 5. Strict I&O 6. Low salt diet 7. Avoid electrolytes abnormalities 8. Cont Digoxin and home Lasix 9. Nicotine Patch 10. Smoking cessation (2) CAD (coronary artery disease) ICD Codes: I25.10 - Atherosclerotic heart disease of [place] coronary artery without angina pectoris Status: Acute (3) hx aicd Status: Acute (4) COPD with acute exacerbation ICD Codes: J44.1 - Chronic obstructive pulmonary disease with (acute) exacerbation Status: Acute (5) Tobacco abuse ICD Codes: Z72.0 - Tobacco use Status: Acute (6) Noncompliance with medications ICD Codes: Z91.14 - Patient's other noncompliance with medication regimen Status: Acute Mendez-Quinten Frye MD Feb 11, 2017 16:47
--- NOTE | 2017-02-11 16:53 | EKG ---
Date Performed: 02/11/2017 Time Performed: 04:50:40 PTAGE: 77 years EKG: Irregular supraventricular rhythm that is probably atrial fibrillation, but the suboptimal quality of the tracing makes it difficult to exclude other tachycardias. MODERATE INTRAVENTRICULAR CO NDUCTION DELAY ST DEVIATION AND MODERATE T-WAVE ABNORMALITY, CONSIDER LATERAL ISCHEMIA ST DEVIATION A ND MODERATE T-WAVE ABNORMALITY, CONSIDER INFERIOR ISCHEMIA ABNORMAL ECG PREVIOUS TRACING 06/09/16 Since the prior tracing, there has been a slowing of the ventricular response of the probable atrial fibrillation. When allowing for the artifact in both tracings, there has likely been no other significant serial change. DOCTOR: Makayla Guillory Interpretating Date/Time 02/11/2017 16:51:59
[2017-02-11] MEDS: APIXABAN 5 MG TABLET PO SCH (20:53)
[2017-02-11] MEDS: CARVEDILOL 12.5 MG TAB PO SCH (20:54)
[2017-02-11] MEDS ORDERED: CARVEDILOL 12.5 MG TAB PO SCH (21:00)
[2017-02-12] VITALS (27 sets, daily range): BP systolic 95–111; BP diastolic 57–76; PULSE 62–111; RESP 18–20; TEMP 97.6–98.3; O2SAT 96–98
[2017-02-12] MEDS: RESP: ALBUTEROL 2.5 MG/IPRATROPIUM 0.5 MG NEB (SCH) INH ×6 (03:12→23:30)
[2017-02-12] MEDS: INSULIN NovoLIN REGULAR SUPPLEMENTAL SCALE SQ SCH ×4 (03:53→21:06)
[2017-02-12] MEDS: CHLORHEXIDINE GLUCONATE 2 % 1 PACK (2 CLOTHS) TOP SCH (04:00)
[2017-02-12] MEDS: methylPREDNISolone SOD SUCC 40 MG/1 ML VIAL IV PUSH SCH ×3 (05:06→21:06)
[2017-02-12 07:00] LABS: AUTOMATED NEUTROPHIL # 9.1 TH/MM3 (1.8-7.7); BASOPHIL % 0.1 % (0.0-2.0); HEMATOCRIT 43.6 % (39.0-51.0); HEMO FLAGS DIFF FINAL; LYMPH % 4.3 % (9.0-44.0); LYMPHOCYTE # 0.4 TH/MM3 (1.0-4.8); MEAN CELL VOLUME 100.5 FL (80.0-100.0); MEAN CORPUSCULAR HEMOGLOBIN 34.1 PG (27.0-34.0); MEAN CORPUSCULAR HGB CONC 33.9 % (32.0-36.0); MONO % 2.6 % (0.0-8.0); PLATELET COUNT 108 TH/MM3 (150-450); RED BLOOD COUNT 4.34 MIL/MM3 (4.50-5.90); RED CELL DISTRIBUTION WIDTH 15.5 % (11.6-17.2); WHITE BLOOD COUNT 9.8 TH/MM3 (4.0-11.0)
[2017-02-12 07:34] LABS: ANION GAP 11 MEQ/L (5-15); AST (GOT) 21 U/L (15-37); BICARBONATE 23.3 MEQ/L (21.0-32.0); BLOOD UREA NITROGEN 22 MG/DL (7-18); CHLORIDE 107 MEQ/L (98-107); GLOMERULAR FILTRATION RATE 67 ML/MIN (>89); POTASSIUM 4.5 MEQ/L (3.5-5.1); SODIUM (NA) 141 MEQ/L (136-145)
[2017-02-12 07:38] LABS: ALKALINE PHOSPHATASE 100 U/L (45-117); ALT (GPT) 23 U/L (12-78); TOTAL BILIRUBIN ADULT 1.3 MG/DL (0.2-1.0)
[2017-02-12] MEDS: CARVEDILOL 12.5 MG TAB PO SCH ×2 (08:40→19:51)
[2017-02-12] MEDS: APIXABAN 5 MG TABLET PO SCH ×2 (08:40→19:51)
[2017-02-12] MEDS: DOCUSATE SODIUM 50 MG/SENNA 8.6 MG TAB PO SCH ×2 (08:40→19:51)
[2017-02-12] MEDS: AMIODARONE 200 MG TAB PO SCH (08:40)
[2017-02-12] MEDS: FAMOTIDINE 20 MG/2 ML VIAL IV PUSH SCH ×2 (09:35→21:06)
--- NOTE | 2017-02-12 11:49 | HHI.HP ---
History of Present Illness Service Medicine Primary Care Physician Nitish Collier, DO Admission Diagnosis afib RVR Diagnoses: History of Present Illness The patient is a 77-year-old male with past medical history of atrial fibrillation on Eliquis, COPD, cardiomyopathy with EF of 30%, coronary artery disease. He presented to [facility] ED with atrial fibrillation with RVR. The patient was given Cardizem 20 mg en route by paramedics and on arrival to the ED he was in respiratory distress as well. No associated symptoms of chest pain, orthopnea, PND or edema of lower extremities. In the ER he was tachycardic with heart rate of 120s and was placed on BiPAP. ABG on BiPAP showed a pH of 7.41, CO2 35, pAO2 of 230, bicarb of 22, saturation of 98%. The EKG in the ED showed atrial fibrillation with RVR. He was given additional Cardizem bolus 20 mg and placed on Cardizem drip at 5 mg an hour. The patient overall improved in the ED and when seen he is on 2.5 liters oxygen via nasal cannula with saturation ranges between 92-95% and current heart rate of 87 with blood pressure of 109/66. Chest x-ray in the ED showed no acute findings, hyperaerated lungs. The patient appears comfortable, in no acute distress. He denies any fever, cough or constitutional symptoms. In addition he denies any nausea, vomiting or abdominal pain. Review of Systems Respiratory: DENIES: Cough, Sputum production, Shortness of breath Cardiovascular: COMPLAINS OF: Palpitations, DENIES: Chest pain Gastrointestinal: DENIES: Abdominal pain, Constipation, Diarrhea Except as stated in HPI: all other systems reviewed are Neg Past Family Social History Allergies: Coded Allergies: amlodipine (Unverified Adverse Reaction, Unknown, rapid breathing , ) atorvastatin (Unverified Adverse Reaction, Unknown, rapid breathing , ) pravastatin (Unverified Adverse Reaction, Unknown, rapid breathing , 02/11) simvastatin (Unverified Adverse Reaction, Unknown, rapid breathing , 02/11) Past Medical History PAST MEDICAL HISTORY Past medical history significant for: 1. Cardiomyopathy with EF of 30%. 2. Coronary artery disease. 3. COPD. 4. Chronic atrial fibrillation. Past Surgical History PAST SURGICAL HISTORY Previous CABG and pacemaker placement. Active Ordered Medications Current Medications Medications (Trade) Dose Ordered Sig/[place] Route Start Time Stop Time Status Last Admin (NS Flush) 2 ml UNSCH PRN IV FLUSH 02/11/17 05:00 Diltiazem HCl 125 mg/Sodium Chloride 125 ml @ 5 mls/hr TITRATE PRN IV 02/11/17 05:00 02/11/17 05:27 (NS Flush) 2 ml UNSCH PRN IV FLUSH 02/11/17 05:00 (Duoneb Neb) 1 ampule Q4HR NEB INH 02/11/17 12:00 02/12/17 07:55 (Duoneb Neb) 1 ampule Q2HR NEB PRN INH 02/11/17 09:00 Miscellaneous Information 1 Q361D XX 02/11/17 09:00 02/11/17 09:00 (Chlorhexidine 2% Cloth) 3 pack Taper DAILY@04 TOP 02/12/17 04:00 02/08/18 03:59 (Chlorhexidine 2% Cloth) 3 pack UNSCH PRN TOP 02/11/17 09:00 (Gayle-Colace) 1 tab BID PO 02/11/17 09:00 02/12/17 08:40 (Milk Of Magnesia Liq) 30 ml Q12H PRN PO 02/11/17 09:00 (Senokot) 17.2 mg Q12H PRN PO 02/11/17 09:00 (Dulcolax Supp) 10 mg DAILY PRN RECTAL 02/11/17 09:00 (Lactulose Liq) 30 ml DAILY PRN PO 02/11/17 09:00 (SoluMEDROL INJ) 40 mg Q8HR IV PUSH 02/11/17 10:30 02/12/17 05:06 (D50w (Vial) Inj) 50 ml UNSCH PRN IV PUSH 02/11/17 09:15 (Glucagon Inj) 1 mg UNSCH PRN OTHER 02/11/17 09:15 (NovoLIN R SUPPLEMENTAL SCALE) 1 Q6H SQ 02/11/17 10:00 02/12/17 09:35 (Cordarone) 200 mg DAILY PO 02/11/17 10:15 02/12/17 08:40 (Eliquis) 5 mg BID PO 02/11/17 21:00 02/12/17 08:40 (Pepcid Inj) 10 mg Q12H IV PUSH 02/11/17 10:00 02/12/17 09:35 (Coreg) 25 mg BID PO 02/11/17 21:00 02/12/17 08:40 Social History SOCIAL HISTORY Occasional drinker, smoker Physical Exam Vital Signs Vital Signs Date Time Temp Pulse Resp B/P (MAP) Pulse Ox O2 Delivery O2 Flow Rate FiO2 02/12/17 11:06 97.6 85 20 101/65 (77) 96 02/12/17 11:00 81 02/12/17 10:00 88 02/12/17 09:00 98 02/12/17 08:00 94 02/12/17 07:57 98 Nasal Cannula 3.00 02/12/17 07:30 97.8 101 18 110/76 (87) 98 02/12/17 07:30 98 Nasal Cannula 2.00 02/12/17 07:00 89 02/12/17 05:00 86 02/12/17 04:35 98.0 84 20 95/57 (70) 98 02/12/17 04:00 90 02/12/17 03:00 108 02/12/17 02:00 86 02/12/17 01:00 90 02/12/17 00:00 86 02/11/17 23:25 98.0 88 20 123/67 (85) 98 02/11/17 23:00 88 02/11/17 22:20 99 Nasal Cannula 2.00 02/11/17 22:00 90 02/11/17 21:00 88 02/11/17 20:00 98.0 105 20 118/65 (82) 98 02/11/17 20:00 100 02/11/17 19:27 99 Nasal Cannula 3.00 02/11/17 19:00 92 02/11/17 18:12 108 02/11/17 17:00 96 02/11/17 16:49 99 02/11/17 15:21 87 02/11/17 15:21 111 123/85 02/11/17 15:10 97.8 111 20 123/85 (98) 93 02/11/17 15:10 93 Nasal Cannula 2.00 02/11/17 14:00 92 20 150/74 (99) 99 02/11/17 13:12 99 Nasal Cannula 2.00 02/11/17 13:00 95 20 148/70 (96) 99 02/11/17 12:00 103 22 117/77 (90) 100 Physical Exam GENERAL: alert and oriented SKIN: Warm and dry. HEAD: Normocephalic. EYES: No scleral icterus. No injection or drainage. NECK: Supple, trachea midline. No JVD or lymphadenopathy. CARDIOVASCULAR: Regular rate and rhythm without murmurs, gallops, or rubs. RESPIRATORY: Breath sounds equal bilaterally. No accessory muscle use. GASTROINTESTINAL: Abdomen soft, non-tender, nondistended. MUSCULOSKELETAL: No cyanosis, or edema. BACK: Nontender without obvious deformity. No CVA tenderness. Laboratory Laboratory Tests Test 02/12/17 04:34 White Blood Count 9.8 Red Blood Count 4.34 Hemoglobin 14.8 Hematocrit 43.6 Mean Corpuscular Volume 100.5 Mean Corpuscular Hemoglobin 34.1 Mean Corpuscular Hemoglobin Concent 33.9 Red Cell Distribution Width 15.5 Platelet Count 108 Mean Platelet Volume 9.5 Neutrophils (%) (Auto) 93.0 Lymphocytes (%) (Auto) 4.3 Monocytes (%) (Auto) 2.6 Eosinophils (%) (Auto) 0.0 Basophils (%) (Auto) 0.1 Neutrophils # (Auto) 9.1 Lymphocytes # (Auto) 0.4 Monocytes # (Auto) 0.3 Eosinophils # (Auto) 0.0 Basophils # (Auto) 0.0 CBC Comment DIFF FINAL Differential Comment Blood Urea Nitrogen 22 Creatinine 1.07 Random Glucose 141 Total Protein 6.9 Albumin 3.5 Calcium Level 8.8 Alkaline Phosphatase 100 Aspartate Amino Transf (AST/SGOT) 21 Alanine Aminotransferase (ALT/SGPT) 23 Total Bilirubin 1.3 Sodium Level 141 Potassium Level 4.5 Chloride Level 107 Carbon Dioxide Level 23.3 Anion Gap 11 Estimat Glomerular Filtration Rate 67 Result Diagram: 02/12/1743302/12/17433 Imaging Last 72 hours Impressions Chest X-Ray 02/11/17453 Signed Impressions: Service Date/Time: January 05:16 - CONCLUSION: No acute findings. Hyperaerated lungs. MD Siva Gramajo VTE Risk Assessment Caprini VTE Risk Assessment: Mod/High Risk (score >= 2) Caprini Risk Assessment Model Point Value = 1 Point Value = 2 Point Value = 3 Point Value = 5 Age 41-60 Minor surgery BMI > 25 kg/m2 Swollen legs Varicose veins or History of unexplained or recurrent spontaneous Oral contraceptives or hormone replacement Sepsis (< 1 month) Serious lung disease, including pneumonia (< 1 month) Abnormal pulmonary function Acute myocardial infarction Congestive heart failure (< 1 month) History of inflammatory bowel disease Medical patient at bed rest Age 61-74 Arthroscopic surgery Major open surgery (> 45 min) Laparoscopic surgery (> 45 min) Malignancy Confined to bed (> 72 hours) Immobilizing plaster cast Central venous access Age >= 75 History of VTE Family history of VTE Factor V Leiden Prothrombin [id number] Lupus anticoagulant Anticardiolipin antibodies Elevated serum homocysteine Heparin-induced thrombocytopenia Other congenital or acquired thrombophilia Stroke (< 1 month) Elective arthroplasty Hip, pelvis, or leg fracture Acute spinal cord injury (< 1 month) Prophylaxis Regimen Total Risk Factor Score Risk Level Prophylaxis Regimen 0-1 Low Early ambulation 2 Moderate Order ONE of the following: *Sequential Compression Device (SCD) *Heparin 5000 units SQ BID 3-4 Higher Order ONE of the following medications: *Heparin 5000 units SQ TID *Enoxaparin/Lovenox 40 mg SQ daily (WT < 150 kg, CrCl > 30 mL/min) *Enoxaparin/Lovenox 30 mg SQ daily (WT < 150 kg, CrCl > 10-29 mL/min) *Enoxaparin/Lovenox 30 mg SQ BID (WT < 150 kg, CrCl > 30 mL/min) AND/OR *Sequential Compression Device (SCD) 5 or more Highest Order ONE of the following medications: *Heparin 5000 units SQ TID (Preferred with Epidurals) *Enoxaparin/Lovenox 40 mg SQ daily (WT < 150 kg, CrCl > 30 mL/min) *Enoxaparin/Lovenox 30 mg SQ daily (WT < 150 kg, CrCl > 10-29 mL/min) *Enoxaparin/Lovenox 30 mg SQ BID (WT < 150 kg, CrCl > 30 mL/min) AND *Sequential Compression Device (SCD) Assessment and Plan Problem List: (1) Atrial fibrillation with RVR ICD Codes: I48.91 - Unspecified atrial fibrillation Status: Acute (2) COPD with acute exacerbation ICD Codes: J44.1 - Chronic obstructive pulmonary disease with (acute) exacerbation Status: Acute (3) CAD (coronary artery disease) ICD Codes: I25.10 - Atherosclerotic heart disease of [place] coronary artery without angina pectoris Status: Acute (4) Tobacco abuse ICD Codes: Z72.0 - Tobacco use Status: Acute Assessment and Plan 02/12/17 AFIB RVR: On Cardizem drip wean as tolerated. Cardiology consulted. On Eliquis , amiodarone, digoxin, and coreg. COPD: No SOB noted today. On albuterol and prednisone. Chest Xray with no acute findings Systolic CHF: Stable continue lasix as ordered. I and the [employer] have both examined this patient and reviewed this note and I agree with these findings and plan of care. Mary Jo Church. [employer] Feb 12, 2017 11:49
--- NOTE | 2017-02-12 12:50 | PD.CARD.PN ---
Subjective Subjective Remarks no cv complaints afib rate control Objective Medications Current Medications Medications (Trade) Dose Ordered Sig/[place] Route Start Time Stop Time Status Last Admin (NS Flush) 2 ml UNSCH PRN IV FLUSH 02/11/17 05:00 Diltiazem HCl 125 mg/Sodium Chloride 125 ml @ 5 mls/hr TITRATE PRN IV 02/11/17 05:00 02/11/17 05:27 (NS Flush) 2 ml UNSCH PRN IV FLUSH 02/11/17 05:00 (Duoneb Neb) 1 ampule Q4HR NEB INH 02/11/17 12:00 02/12/17 12:05 (Duoneb Neb) 1 ampule Q2HR NEB PRN INH 02/11/17 09:00 Miscellaneous Information 1 Q361D XX 02/11/17 09:00 02/11/17 09:00 (Chlorhexidine 2% Cloth) 3 pack Taper DAILY@04 TOP 02/12/17 04:00 02/08/18 03:59 (Chlorhexidine 2% Cloth) 3 pack UNSCH PRN TOP 02/11/17 09:00 (Gayle-Colace) 1 tab BID PO 02/11/17 09:00 02/12/17 08:40 (Milk Of Magnesia Liq) 30 ml Q12H PRN PO 02/11/17 09:00 (Senokot) 17.2 mg Q12H PRN PO 02/11/17 09:00 (Dulcolax Supp) 10 mg DAILY PRN RECTAL 02/11/17 09:00 (Lactulose Liq) 30 ml DAILY PRN PO 02/11/17 09:00 (SoluMEDROL INJ) 40 mg Q8HR IV PUSH 02/11/17 10:30 02/12/17 05:06 (D50w (Vial) Inj) 50 ml UNSCH PRN IV PUSH 02/11/17 09:15 (Glucagon Inj) 1 mg UNSCH PRN OTHER 02/11/17 09:15 (NovoLIN R SUPPLEMENTAL SCALE) 1 Q6H SQ 02/11/17 10:00 02/12/17 09:35 (Cordarone) 200 mg DAILY PO 02/11/17 10:15 02/12/17 08:40 (Eliquis) 5 mg BID PO 02/11/17 21:00 02/12/17 08:40 (Pepcid Inj) 10 mg Q12H IV PUSH 02/11/17 10:00 02/12/17 09:35 (Coreg) 25 mg BID PO 02/11/17 21:00 02/12/17 08:40 Vital Signs / I&O Vital Signs Date Time Temp Pulse Resp B/P (MAP) Pulse Ox O2 Delivery O2 Flow Rate FiO2 02/12/17 12:36 88 02/12/17 11:06 97.6 85 20 101/65 (77) 96 02/12/17 11:00 81 02/12/17 10:00 88 02/12/17 09:00 98 02/12/17 08:00 94 02/12/17 07:57 98 Nasal Cannula 3.00 02/12/17 07:30 97.8 101 18 110/76 (87) 98 02/12/17 07:30 98 Nasal Cannula 2.00 02/12/17 07:00 89 02/12/17 05:00 86 02/12/17 04:35 98.0 84 20 95/57 (70) 98 02/12/17 04:00 90 02/12/17 03:00 108 02/12/17 02:00 86 02/12/17 01:00 90 02/12/17 00:00 86 02/11/17 23:25 98.0 88 20 123/67 (85) 98 02/11/17 23:00 88 02/11/17 22:20 99 Nasal Cannula 2.00 02/11/17 22:00 90 02/11/17 21:00 88 02/11/17 20:00 98.0 105 20 118/65 (82) 98 02/11/17 20:00 100 02/11/17 19:27 99 Nasal Cannula 3.00 02/11/17 19:00 92 02/11/17 18:12 108 02/11/17 17:00 96 02/11/17 16:49 99 02/11/17 15:21 87 02/11/17 15:21 111 123/85 02/11/17 15:10 97.8 111 20 123/85 (98) 93 02/11/17 15:10 93 Nasal Cannula 2.00 02/11/17 14:00 92 20 150/74 (99) 99 02/11/17 13:12 99 Nasal Cannula 2.00 02/11/17 13:00 95 20 148/70 (96) 99 I/O 02/11/17 02/11/17 02/11/17 02/12/17 02/12/17 02/12/17 07:00 15:00 23:00 07:00 15:00 23:00 Intake Total 520 ml 240 ml Output Total 250 ml 450 ml Balance 270 ml -210 ml Intake Oral 520 ml 240 ml Output Urine Total 250 ml 450 ml Stool Total 0 ml Physical Exam GENERAL: Well-nourished, well-developed patient. SKIN: Warm and dry. HEAD: Normocephalic. EYES: No scleral icterus. No injection or drainage. NECK: Supple, trachea midline. No JVD or lymphadenopathy. CARDIOVASCULAR: Irr Irr no murmurs, gallops, or rubs. RESPIRATORY: Breath sounds equal bilaterally. No accessory muscle use. GASTROINTESTINAL: Abdomen soft, non-tender, nondistended. EXTREMITIES: No cyanosis, or edema. NEUROLOGICAL: Awake, alert, and oriented x 3. Non-focal. Laboratory Laboratory Tests Test 02/12/17 04:34 White Blood Count 9.8 TH/MM3 Red Blood Count 4.34 MIL/MM3 Hemoglobin 14.8 GM/DL Hematocrit 43.6 % Mean Corpuscular Volume 100.5 FL Mean Corpuscular Hemoglobin 34.1 PG Mean Corpuscular Hemoglobin Concent 33.9 % Red Cell Distribution Width 15.5 % Platelet Count 108 TH/MM3 Mean Platelet Volume 9.5 FL Neutrophils (%) (Auto) 93.0 % Lymphocytes (%) (Auto) 4.3 % Monocytes (%) (Auto) 2.6 % Eosinophils (%) (Auto) 0.0 % Basophils (%) (Auto) 0.1 % Neutrophils # (Auto) 9.1 TH/MM3 Lymphocytes # (Auto) 0.4 TH/MM3 Monocytes # (Auto) 0.3 TH/MM3 Eosinophils # (Auto) 0.0 TH/MM3 Basophils # (Auto) 0.0 TH/MM3 CBC Comment DIFF FINAL Differential Comment Blood Urea Nitrogen 22 MG/DL Creatinine 1.07 MG/DL Random Glucose 141 MG/DL Total Protein 6.9 GM/DL Albumin 3.5 GM/DL Calcium Level 8.8 MG/DL Alkaline Phosphatase 100 U/L Aspartate Amino Transf (AST/SGOT) 21 U/L Alanine Aminotransferase (ALT/SGPT) 23 U/L Total Bilirubin 1.3 MG/DL Sodium Level 141 MEQ/L Potassium Level 4.5 MEQ/L Chloride Level 107 MEQ/L Carbon Dioxide Level 23.3 MEQ/L Anion Gap 11 MEQ/L Estimat Glomerular Filtration Rate 67 ML/MIN Imaging Last Impressions Chest X-Ray 02/11/17 0454 Signed Impressions: Service Date/Time: January 05:16 - CONCLUSION: No acute findings. Hyperaerated lungs. Kurt Foss MD Assessment and Plan Problem List: (1) Atrial fibrillation with RVR ICD Codes: I48.91 - Unspecified atrial fibrillation Status: Acute Plan: No CV complaints Recs: Cont rate control Wean Cardizem drip to D/C and Cont PO meds Cont OAC Patient can be d/c home once rate is control. Follow with Dr. Fernandez upon discharge Will be available on a PRN basis for any questions or concerns (2) CAD (coronary artery disease) ICD Codes: I25.10 - Atherosclerotic heart disease of [place] coronary artery without angina pectoris Status: Acute (3) hx aicd Status: Acute (4) COPD with acute exacerbation ICD Codes: J44.1 - Chronic obstructive pulmonary disease with (acute) exacerbation Status: Acute (5) Tobacco abuse ICD Codes: Z72.0 - Tobacco use Status: Acute (6) Noncompliance with medications ICD Codes: Z91.14 - Patient's other noncompliance with medication regimen Status: Acute Mendez-Quinten Frye MD Feb 12, 2017 12:50
[2017-02-12] MEDS: DILTIAZEM INJ 125 MG in SODIUM CHLORIDE 0.9% INJ 100 ML IV PRN (19:55)
[2017-02-13] VITALS (26 sets, daily range): BP systolic 91–116; BP diastolic 49–80; PULSE 78–101; RESP 14–20; TEMP 97.5–98.2; O2SAT 96–98
[2017-02-13] MEDS: RESP: ALBUTEROL 2.5 MG/IPRATROPIUM 0.5 MG NEB (SCH) INH ×6 (03:49→23:51)
[2017-02-13] MEDS: INSULIN NovoLIN REGULAR SUPPLEMENTAL SCALE SQ SCH ×4 (04:00→16:52)
[2017-02-13] MEDS: CHLORHEXIDINE GLUCONATE 2 % 1 PACK (2 CLOTHS) TOP SCH (04:00)
[2017-02-13] MEDS: methylPREDNISolone SOD SUCC 40 MG/1 ML VIAL IV PUSH SCH ×3 (05:21→21:11)
[2017-02-13 07:30] LABS: AUTOMATED NEUTROPHIL # 12.9 TH/MM3 (1.8-7.7); BASOPHIL % 0.1 % (0.0-2.0); HEMATOCRIT 40.4 % (39.0-51.0); LYMPH % 3.3 % (9.0-44.0); LYMPHOCYTE # 0.5 TH/MM3 (1.0-4.8); MEAN CELL VOLUME 100.3 FL (80.0-100.0); MEAN CORPUSCULAR HEMOGLOBIN 33.8 PG (27.0-34.0); MEAN CORPUSCULAR HGB CONC 33.7 % (32.0-36.0); MONO % 3.7 % (0.0-8.0); NEUT % 92.9 % (16.0-70.0); PLATELET COUNT 99 TH/MM3 (150-450); RED BLOOD COUNT 4.03 MIL/MM3 (4.50-5.90); RED CELL DISTRIBUTION WIDTH 15.3 % (11.6-17.2); WHITE BLOOD COUNT 13.9 TH/MM3 (4.0-11.0)
[2017-02-13 07:38] LABS: HEMO FLAGS AUTO DIFF
[2017-02-13 07:50] LABS: BICARBONATE 21.8 MEQ/L (21.0-32.0); POTASSIUM 4.2 MEQ/L (3.5-5.1)
--- NOTE | 2017-02-13 09:50 | HHI.PR ---
Subjective Remarks doing well heart rate controlled below 100 will start Cardizem cd 120 and wean cardizem drip Objective Vital Signs Date Time Temp Pulse Resp B/P (MAP) Pulse Ox O2 Delivery O2 Flow Rate FiO2 02/13/17 07:53 98 02/13/17 06:00 90 02/13/17 05:00 93 02/13/17 04:00 98.2 89 18 91/66 (74) 97 02/13/17 04:00 Room Air 02/13/17 04:00 87 02/13/17 03:00 98 02/13/17 02:00 90 02/13/17 01:00 90 02/13/17 00:00 98.0 101 18 110/75 (87) 96 02/13/17 00:00 Room Air 02/13/17 00:00 101 02/12/17 23:00 111 02/12/17 22:00 89 02/12/17 21:00 99 02/12/17 20:00 96 02/12/17 20:00 98.3 96 20 111/76 (88) 96 02/12/17 20:00 Room Air 02/12/17 19:55 99 111/76 02/12/17 18:06 92 02/12/17 17:00 94 02/12/17 16:00 82 02/12/17 16:00 77 111/69 02/12/17 15:36 96 Room Air 02/12/17 15:35 98.2 62 18 111/69 (83) 96 02/12/17 15:30 62 111/69 02/12/17 15:00 76 02/12/17 14:00 78 02/12/17 13:00 82 02/12/17 12:36 88 02/12/17 11:06 97.6 85 20 101/65 (77) 96 02/12/17 11:00 81 02/12/17 10:00 88 I/O 02/12/17 02/12/17 02/12/17 02/13/17 02/13/17 02/13/17 07:00 15:00 23:00 07:00 15:00 23:00 Intake Total 240 ml 600 ml 290 ml Output Total 450 ml 600 ml Balance -210 ml 600 ml -310 ml Intake Oral 240 ml 600 ml 240 ml IV Total 50 ml Output Urine Total 450 ml 600 ml # Voids 3 # Bowel Movements 0 Result Diagram: 02/13/17 0700 02/13/17 0700 Imaging Last Impressions Chest X-Ray 02/11/17 0282 Signed Impressions: Service Date/Time: January 05:16 - CONCLUSION: No acute findings. Hyperaerated lungs. Kurt Foss MD Objective Remarks GENERAL:slender white male patient. SKIN: Warm and dry. HEAD: Normocephalic. EYES: No scleral icterus. No injection or drainage. NECK: Supple, trachea midline. No JVD or lymphadenopathy. CARDIOVASCULAR: Regular rate and rhythm without murmurs, gallops, or rubs. RESPIRATORY: Breath sounds equal bilaterally. No accessory muscle use.breath sounds diminished bilaterally GASTROINTESTINAL: Abdomen soft, non-tender, nondistended. EXTREMITIES: No cyanosis, or edema. NEUROLOGICAL: Awake, alert, and oriented x 3. Non-focal. Medications and IVs Inpatient Medications Albuterol/ Ipratropium (Duoneb Neb) 1 ampule Q2HR NEB PRN INH WHEEZING; Start 02/11/17 at 09:00 Amiodarone HCl (Cordarone) 200 mg DAILY PO Last administered on 02/12/17 08: 40; Start 02/11/17 at 10:15 Apixaban (Eliquis) 5 mg BID PO Last administered on 02/12/17 19:51; Start at 21:00 Bisacodyl (Dulcolax Supp) 10 mg DAILY PRN RECTAL SEVERE CONSITIPATION; Start 02/11/17 at 09:00 Carvedilol (Coreg) 25 mg BID PO Last administered on 02/12/17 19:51; Start 02/11/17 at 21:00 Chlorhexidine Gluconate (Chlorhexidine 2% Cloth) 3 pack UNSCH PRN TOP HYGIENIC CARE; Start 02/11/17 at 09:00 Dextrose (D50w (Vial) Inj) 50 ml UNSCH PRN IV PUSH HYPOGLYCEMIA-SEE COMMENTS; Start 02/11/17 at 09:15 Diltiazem HCl (Cardizem Inj) 20 mg BOLUS ONCE IV PUSH Last administered on 05:01; Start 02/11/17 at 05:15; Stop 02/11/17 at 05:16; Status DC Diltiazem HCl 125 mg/Sodium Chloride 125 ml @ 5 mls/hr TITRATE PRN IV tachycardia Last administered on 02/12/17 19:55; Start 02/11/17 at 05:00 Famotidine (Pepcid Inj) 10 mg Q12H IV PUSH Last administered on 02/12/17 21: 06; Start 02/11/17 at 10:00 Glucagon (Glucagon Inj) 1 mg UNSCH PRN OTHER HYPOGLYCEMIA-SEE COMMENTS; Start 02/11/17 at 09:15 Heparin Sodium (Porcine) (Heparin Inj) 5,000 units Q12H SQ ; Start 02/11/17 at 09:00; Stop 02/11/17 at 09:05; Status DC Insulin Human Regular (NovoLIN R SUPPLEMENTAL SCALE) 1 Q6H SQ Last administered on 02/12/17 09:35; Start 02/11/17 at 10:00 Lactulose (Lactulose Liq) 30 ml DAILY PRN PO SEVERE CONSITIPATION; Start 02/11 at 09:00 Magnesium Hydroxide (Milk Of Magnesia Liq) 30 ml Q12H PRN PO Mild constipation ; Start 02/11/17 at 09:00 Methylprednisolone Sodium Succinate (SoluMEDROL INJ) 40 mg Q8HR IV PUSH Last administered on 02/13/17 05:21; Start 02/11/17 at 10:30 Miscellaneous Information 1 Q361D XX Last administered on 02/11/17 09:00; Start 02/11/17 at 09:00 Senna/Docusate Sodium (Gayle-Colace) 1 tab BID PO Last administered on 19:51; Start 02/11/17 at 09:00 Sennosides (Senokot) 17.2 mg Q12H PRN PO Moderate constipation; Start at 09:00 Sodium Chloride (NS Flush) 2 ml UNSCH PRN IV FLUSH FLUSH AFTER USING IV ACCESS ; Start 02/11/17 at 05:00 Assessment and Plan Problem List: (1) COPD with acute exacerbation ICD Codes: J44.1 - Chronic obstructive pulmonary disease with (acute) exacerbation Status: Acute Plan: smoking cessation urged (2) Atrial fibrillation with RVR ICD Codes: I48.91 - Unspecified atrial fibrillation Status: Acute Plan: wean cardizem drip convert to cardizem 30 mg q 6hours and ultimately to cardizem 120 CD Discussed Condition With patient and nursing Discharge Planning home Nitish Collier DO Feb 13, 2017 09:50
[2017-02-13 10:47] LABS: OVALOCYTES 1+ (NORMAL); PLATELET ESTIMATE SMEAR LOW (NORMAL); PLATELET MORPHOLOGY NORMAL (NORMAL); SCAN/DIFF AUTO DIFF CONFIRMED
[2017-02-13 10:48] LABS: BURR CELLS 1+ (NORMAL)
[2017-02-13] MEDS: DOCUSATE SODIUM 50 MG/SENNA 8.6 MG TAB PO SCH ×2 (11:43→21:09)
[2017-02-13] MEDS: DILTIAZEM HCL 30 MG TAB PO SCH ×2 (11:44→16:52)
[2017-02-13] MEDS: FAMOTIDINE 20 MG/2 ML VIAL IV PUSH SCH ×2 (11:44→21:11)
[2017-02-13] MEDS: APIXABAN 5 MG TABLET PO SCH ×2 (11:44→21:09)
[2017-02-13] MEDS: AMIODARONE 200 MG TAB PO SCH (11:44)
[2017-02-13] MEDS: CARVEDILOL 12.5 MG TAB PO SCH ×2 (11:44→21:09)
[2017-02-14] VITALS (11 sets, daily range): BP systolic 93–116; BP diastolic 44–76; PULSE 85–101; RESP 16–18; TEMP 97.6–98.4; O2SAT 98
[2017-02-14] MEDS: RESP: ALBUTEROL 2.5 MG/IPRATROPIUM 0.5 MG NEB (SCH) INH ×2 (03:28→07:39)
[2017-02-14] MEDS: INSULIN NovoLIN REGULAR SUPPLEMENTAL SCALE SQ SCH ×2 (04:00→10:00)
[2017-02-14] MEDS: CHLORHEXIDINE GLUCONATE 2 % 1 PACK (2 CLOTHS) TOP SCH (04:00)
[2017-02-14] MEDS: DILTIAZEM HCL 30 MG TAB PO SCH ×2 (05:02)
[2017-02-14] MEDS: methylPREDNISolone SOD SUCC 40 MG/1 ML VIAL IV PUSH SCH (05:03)
--- NOTE | 2017-02-14 10:01 | HHI.DS ---
Discharge Summary Admission Date Feb 11, 2017 at 06:28 Admitting Diagnosis afib RVR (1) Tobacco abuse ICD Codes: Z72.0 - Tobacco use Status: Acute (2) COPD with acute exacerbation ICD Codes: J44.1 - Chronic obstructive pulmonary disease with (acute) exacerbation Status: Acute (3) Atrial fibrillation with RVR ICD Codes: I48.91 - Unspecified atrial fibrillation Status: Acute CBC/BMP: 02/13/17 0700 02/13/17 0700 Significant Findings Laboratory Tests Test 02/12/17 04:34 02/13/17 07:00 Red Blood Count 4.34 MIL/MM3 (4.50-5.90) 4.03 MIL/MM3 (4.50-5.90) Mean Corpuscular Volume 100.5 FL (80.0-100.0) 100.3 FL (80.0-100.0) Mean Corpuscular Hemoglobin 34.1 PG (27.0-34.0) Platelet Count 108 TH/MM3 (150-450) 99 TH/MM3 (150-450) Neutrophils (%) (Auto) 93.0 % (16.0-70.0) 92.9 % (16.0-70.0) Lymphocytes (%) (Auto) 4.3 % (9.0-44.0) 3.3 % (9.0-44.0) Neutrophils # (Auto) 9.1 TH/MM3 (1.8-7.7) 12.9 TH/MM3 (1.8-7.7) Lymphocytes # (Auto) 0.4 TH/MM3 (1.0-4.8) 0.5 TH/MM3 (1.0-4.8) Blood Urea Nitrogen 22 MG/DL (7-18) 26 MG/DL (7-18) Random Glucose 141 MG/DL (74-106) 140 MG/DL (74-106) Total Bilirubin 1.3 MG/DL (0.2-1.0) Estimat Glomerular Filtration Rate 67 ML/MIN (>89) 57 ML/MIN (>89) White Blood Count 13.9 TH/MM3 (4.0-11.0) Platelet Estimate LOW (NORMAL) Ovalocytes 1+ (NORMAL) [place] Cells 1+ (NORMAL) Chloride Level 109 MEQ/L (98-107) PE at Discharge GENERAL:slender white male patient. SKIN: Warm and dry. HEAD: Normocephalic. EYES: No scleral icterus. No injection or drainage. NECK: Supple, trachea midline. No JVD or lymphadenopathy. CARDIOVASCULAR: Regular rate and rhythm without murmurs, gallops, or rubs. RESPIRATORY: Breath sounds equal bilaterally. No accessory muscle use.breath sounds diminished bilaterally GASTROINTESTINAL: Abdomen soft, non-tender, nondistended. EXTREMITIES: No cyanosis, or edema. NEUROLOGICAL: Awake, alert, and oriented x 3. Non-focal. Pt Condition on Discharge: Good Discharge Instructions DIET: Follow Instructions for: Heart Healthy Diet Speech Therapy-Diet Recommenda: Regular Activities you can perform: Regular-No Restrictions Activities to avoid: Driving for 24 hrs Additional Information Inpatient Medications Albuterol/ Ipratropium (Duoneb Neb) 1 ampule Q2HR NEB PRN INH WHEEZING; Start 02/11/17 at 09:00 Amiodarone HCl (Cordarone) 200 mg DAILY PO Last administered on 02/13/17 11: 44; Start 02/11/17 at 10:15 Apixaban (Eliquis) 5 mg BID PO Last administered on 02/13/17 21:09; Start at 21:00 Bisacodyl (Dulcolax Supp) 10 mg DAILY PRN RECTAL SEVERE CONSITIPATION; Start 02/11/17 at 09:00 Carvedilol (Coreg) 25 mg BID PO Last administered on 02/13/17 21:09; Start 02/11/17 at 21:00 Chlorhexidine Gluconate (Chlorhexidine 2% Cloth) 3 pack UNSCH PRN TOP HYGIENIC CARE; Start 02/11/17 at 09:00 Dextrose (D50w (Vial) Inj) 50 ml UNSCH PRN IV PUSH HYPOGLYCEMIA-SEE COMMENTS; Start 02/11/17 at 09:15 Diltiazem HCl (Cardizem Inj) 20 mg BOLUS ONCE IV PUSH Last administered on 05:01; Start 02/11/17 at 05:15; Stop 02/11/17 at 05:16; Status DC Diltiazem HCl (Cardizem) 30 mg Q6HR PO Last administered on 02/14/17 05:02; Start 02/13/17 at 12:00 Diltiazem HCl 125 mg/Sodium Chloride 125 ml @ 5 mls/hr TITRATE PRN IV tachycardia Last administered on 02/12/17 19:55; Start 02/11/17 at 05:00 Famotidine (Pepcid Inj) 10 mg Q12H IV PUSH Last administered on 02/13/17 21: 11; Start 02/11/17 at 10:00 Glucagon (Glucagon Inj) 1 mg UNSCH PRN OTHER HYPOGLYCEMIA-SEE COMMENTS; Start 02/11/17 at 09:15 Heparin Sodium (Porcine) (Heparin Inj) 5,000 units Q12H SQ ; Start 02/11/17 at 09:00; Stop 02/11/17 at 09:05; Status DC Insulin Human Regular (NovoLIN R SUPPLEMENTAL SCALE) 1 Q6H SQ Last administered on 02/13/17 16:52; Start 02/11/17 at 10:00 Lactulose (Lactulose Liq) 30 ml DAILY PRN PO SEVERE CONSITIPATION; Start 02/11 at 09:00 Magnesium Hydroxide (Milk Of Magnesia Liq) 30 ml Q12H PRN PO Mild constipation ; Start 02/11/17 at 09:00 Methylprednisolone Sodium Succinate (SoluMEDROL INJ) 40 mg Q8HR IV PUSH Last administered on 02/14/17 05:03; Start 02/11/17 at 10:30 Miscellaneous Information 1 Q361D XX Last administered on 02/11/17 09:00; Start 02/11/17 at 09:00 Senna/Docusate Sodium (Gayle-Colace) 1 tab BID PO Last administered on 21:09; Start 02/11/17 at 09:00 Sennosides (Senokot) 17.2 mg Q12H PRN PO Moderate constipation; Start at 09:00 Sodium Chloride (NS Flush) 2 ml UNSCH PRN IV FLUSH FLUSH AFTER USING IV ACCESS ; Start 02/11/17 at 05:00 Nitish Collier DO Feb 14, 2017 10:01
[2017-02-14] MEDS: APIXABAN 5 MG TABLET PO SCH (10:33)
[2017-02-14] MEDS: FAMOTIDINE 20 MG/2 ML VIAL IV PUSH SCH (10:33)
[2017-02-14] MEDS: DOCUSATE SODIUM 50 MG/SENNA 8.6 MG TAB PO SCH (10:34)
[2017-02-14] MEDS: AMIODARONE 200 MG TAB PO SCH (10:35)
[2017-02-14] MEDS ORDERED: CARVEDILOL 12.5 MG TAB PO SCH (21:00)
== END 2017-02-14 11:08 | disposition home or self-care (01) | DRG 191 ==
LOC: NEPC 04:42 → NEDA 06:28 → HCIS 14:51
PROVIDERS: ADMIT Family Medicine; ATTEND Family Medicine
PROC: 5A09357 Assistance with Respiratory Ventilation, Less than 24 Consecutive Hours, Continuous Positive Airway Pressure (ICD-10-PCS; principal; 2017-02-11)
DX: J44.1 Chronic obstructive pulmonary disease with (acute) exacerbation (principal); N17.9 Acute kidney failure, unspecified; R06.03 Acute respiratory distress; I42.9 Cardiomyopathy, unspecified; I50.20 Unspecified systolic (congestive) heart failure; I11.0 Hypertensive heart disease with heart failure; I48.2 Chronic atrial fibrillation; I25.10 Atherosclerotic heart disease of native coronary artery without angina pectoris; I25.2 Old myocardial infarction; F17.200 Nicotine dependence, unspecified, uncomplicated; Z79.01 Long term (current) use of anticoagulants; Z85.828 Personal history of other malignant neoplasm of skin; Z91.14 Patient's other noncompliance with medication regimen; Z95.0 Presence of cardiac pacemaker; Z95.1 Presence of aortocoronary bypass graft
CPT/HCPCS: 36600; 71010; 80048; 80053; 80162; 82550; 82805; 83690; 83735; 84484; 85025; 87641; 93005; 94002; 94640; 94664; 96365; 96375; J2060; J2920